=== PATIENT | male | born 1990 | race Caucasian/White ===

== ENCOUNTER 2017-01-28 10:12 | Emergency (ER) | payer SELFPAY ==
[~2017-01-28] VITALS: Ht 185.4 cm; Wt 99.8 kg
[2017-01-28 10:12] VITALS: BP 150/81
[2017-01-28] MEDS ORDERED: MIRTAZAPINE15 MG ORAL (10:13)
[2017-01-28] MEDS ORDERED: VENLAFAXINE HCL25 MG ORAL (10:13)
[2017-01-28] MEDS ORDERED: GABAPENTIN100 MG ORAL (10:13)
--- NOTE | 2017-01-28 10:51 | Emergency Room Report ---
History of Present Illness General Chief Complaint: Overdose Source: Patient, EMS Present Illness HPI Patient brought by EMS after they were summoned for patient not breathing. Alleged opiate overdose. Patient woke with narcan. They state he was extremely cyanotic and bradypneic. Patient now awake and denies SI. Denies CP, SOB, cough, NVD, headache. No glucose problems. States he was "getting high". Anxious as from out of town and "all of my things are in my car with the keys in the ignition." Allergies: Coded Allergies: No Known Allergies (Unverified , 01/28/17) Patient History Past Medical History: see triage record Social History: Reports: drug use - heroin Social History Narrative from out of [place] Reviewed Nursing Documentation: PMH: Agreed, PSxH: Agreed Nursing Documentation-PMH History Of Psychiatric Problem: Yes - Anxiety, depression Review of Systems All Other Systems: negative except mentioned in HPI Physical Exam Vital Signs Date Time Temp Pulse Resp B/P Pulse Ox O2 Delivery O2 Flow Rate FiO2 01/28/17 10:09 97.7 106 16 150/81 98 Room Air Sp02 EP Interpretation: reviewed, normal General Appearance: well appearing, no apparent distress, GCS 15 Head: normocephalic Eyes: bilateral eye PERRL, bilateral eye Scleral Injection ENT: moist mucus membranes Neck: supple Respiratory: chest non-tender, lungs clear, normal breath sounds Cardiovascular #1: regular rate, rhythm Cardiovascular #2: 2+ radial (R) Gastrointestinal: normal inspection, normal bowel sounds, non tender, no mass, non-distended Musculoskeletal: back normal, gait/station normal, normal range of motion Neurologic: alert, oriented x3, motor strength/tone normal, DTRs symmetric, sensory intact, cerebellar normal, normal gait, speech normal Psychiatric: no suicidal/homicidal ideation, depressed affect, anxious Skin: other - track cabezas Medical Decision Making Diagnostic Impression: Primary Impression: Drug overdose Qualified Codes: T50.901A - Poisoning by unspecified drugs, medicaments and biological substances, accidental (unintentional), initial encounter Additional Impression: AMA ER Course Patient post respiratory arrest post opiate use now awake with narcan. Ddx: narcotic overdose, polypharmacy abuse, rhabdomyolysis, anoxic brain damage, risk for non-cardiac pulmonary edema, risk for rebound obtundation amongst others. Emergent evaluation with EKG, CXR, labs. Treatment with IV hydration and cardiac monitoring. EKG and CXR normal. Refusing IV and labs. Told of risks - he is more concerned about his possessions. Patient got narcan at 9:59. Refusing IV and labs. Wants to leave. Patient told he could . Insisted on leaving walked out. 10:50. Got in car to drive. Called [employer]. EKG Diagnostic Results Rate: tachycardiac ST Segments: no acute changes Rhythm Strip Diag. Results EP Interpretation: yes Rhythm: no PVC's, no ectopy, other - ST Chest X-Ray Diagnostic Results EP Interpretation: Yes Findings: no consolidation, no effusion, no pneumothorax, no acute cardiopulmonary disease Number of Views: 1 Patient left prior to repeat VS taken. Status: improved Disposition: AGAINST MEDICAL ADVICE Condition: Improved Referrals: NOT CHOSEN CARIDAD/,REFERRING (PCP) Sebastian Hwang M.D. Jan 28, 2017 10:51
[2017-01-28 10:52] VITALS: BP 150/81
--- NOTE | 2017-01-28 11:07 | Diagnostic Imaging Report ---
Indication: Short of breath Technique: XRAY CHEST 1 V Comparison: None. Findings: The cardiomediastinal silhouette is normal. The lungs are clear. There is no evidence of pleural fluid. The bones are unremarkable. Impression: Normal chest.
--- NOTE | 2017-01-30 13:57 | Cardiology Report ---
APPROVED REPORT EKG Measurement Heart [id number] Sinus tachycardia Otherwise normal ECG
== END 2017-01-28 10:52 | disposition left against medical advice (07) ==
LOC: EDBD 10:12 → EMR 10:47
DX: T65.91XA Toxic effect of unspecified substance, accidental (unintentional), initial encounter (principal); F41.9 Anxiety disorder, unspecified; Z53.21 Procedure and treatment not carried out due to patient leaving prior to being seen by health care provider
CPT/HCPCS: 71010; 93005; 99283

== ENCOUNTER 2017-08-07 17:44 | Inpatient (IN) | payer BC ==
[~2017-08-07] VITALS: Ht 185.4 cm; Wt 93.0 kg
[2017-08-07] VITALS (16 sets, daily range): BP systolic 92–195; BP diastolic 46–124
[~2017-08-07 17:44] MED LIST: GABAPENTIN100 MG ORAL; MIRTAZAPINE15 MG ORAL; Naloxone 1mg/ml 2ml ONE; VENLAFAXINE HCL25 MG ORAL
[2017-08-07] MEDS ORDERED: Naloxone 2 MG in D5W 500ml 498 ML IV SCH (17:45)
[2017-08-07] MEDS ORDERED: Naloxone 1mg/ml 2ml IVP ONE ×2 (17:45→18:30)
--- NOTE | 2017-08-07 18:29 | Emergency Room Report ---
History of Present Illness General Chief Complaint: Overdose Source: EMS Present Illness HPI 27YOM BIBEMS for suspected fentanyl overdose Unknown how patient took it Unknown if took other drugs, ETOH Was given 6mg naloxone various routes with minimal improvement Patient not providing HPI No other family/friends present Allergies: Coded Allergies: No Known Allergies (Unverified , 01/28/17) Patient History Past Medical History: unable to obtain Past Surgical History: unable to obtain Pertinent Family History: unable to obtain Immunizations: UTD Reviewed Nursing Documentation: PMH: Agreed, PSxH: Agreed Nursing Documentation-PMH Past Medical History: Deferred History Of Psychiatric Problem: Yes - substance abuse Review of Systems All Other Systems: limited - AMS Physical Exam Vital Signs Date Time Temp Pulse Resp B/P (MAP) Pulse Ox O2 Delivery O2 Flow Rate FiO2 08/07/17 17:38 56 12 124/75 96 Non-Rebreather 100 Sp02 EP Interpretation: reviewed, normal General Appearance: severe distress, lethargic, other - Diaphoretic Head: normocephalic, atraumatic Eyes: bilateral eye PERRL, bilateral eye EOMI, bilateral eye other - Pupils dilated ENT: normal ENT inspection, normal pharynx, no angioedema Respiratory: normal inspection, no rhonchi, no respiratory distress, no retraction, no accessory muscle use, no wheezing, accessory muscle use Cardiovascular #1: regular rate, rhythm, no edema Gastrointestinal: normal inspection, normal bowel sounds, non tender, soft, no guarding, no hernia, other - Intermittent vomiting gastric contents Genitourinary: no CVA tenderness Musculoskeletal: normal inspection, back normal, normal range of motion, Jennifer' s Sign negative Neurologic: normal inspection, alert, responsive, other - 4 limb movement normal Procedures Critical Care Time Critical Care Time CC time 80 minutes Includes constant bedside monitoring after multiple naloxone doses without improvement Review of labs, d/w EMS, review of CXR Includes brief 20min Code Blue Intubation Intubation : Consent: Emergent Intubation Method: orotracheal Tube Size (cm): 7.5 Medications: Etomidate Breath Sounds after Intubation: equal Intubation Complications: no complications Post Intubation Xray: Yes Attempts: Other - 2 Patient Tolerated: Well Complications: None Progress Patient intubated under direct Glidescope intubation with tube seen passing into vocal cords at 23cm Bilateral breath sounds auscultated No sounds heard in stomach When connected to vent, RT reports "Vent not registering" I rechecked with Glidescope and tube was dislodged to 20cm Patient emergently reintubated under direct glidescope visulization with tube to 26cm Bilateral breath sounds auscultated Medical Decision Making Diagnostic Impression: Primary Impression: Fentanyl poisoning Qualified Codes: T40.4X4A - Poisoning by other synthetic narcotics, undetermined, initial encounter Additional Impressions: Narcotic-induced respiratory depression Rhabdomyolysis Qualified Codes: M62.82 - Rhabdomyolysis DANTE (acute kidney injury) Altered mental status Qualified Codes: R41.82 - Altered mental status, unspecified ER Course Unknown intent fentanyl OD Minimal response to EMS and ER given naloxone Vomiting repeatedly Suspected aspiration Intubated emergently for airway protection and respiratory arrest Labs: Elevated WBCs, likely acute stress response vs aspiration Mild DANTE Mild Rhabdo Endorsed to Dr Howard for ICU admit at 8pm EKG Diagnostic Results Rate: tachycardiac Rhythm: NSR ST Segments: no acute changes ASA given to the pt in ED: No Rhythm Strip Diag. Results EP Interpretation: yes Rate: 98 Rhythm: NSR, no PVC's Chest X-Ray Diagnostic Results Chest X-Ray Diagnostic Results : Chest X-Ray Ordered: Yes # of Views/Limited/Complete: 1 View Indication: Other - AMS EP Interpretation: Yes Interpretation: no consolidation, no effusion, no pneumothorax, no acute cardiopulmonary disease, other - Tube in place Last Vital Signs Date Time Temp Pulse Resp B/P (MAP) Pulse Ox O2 Delivery O2 Flow Rate FiO2 08/07/17 17:38 56 12 124/75 96 Non-Rebreather 100 Status: improved Disposition: ADMITTED INPATIENT Condition: Critical Scripts Amoxicillin/Potassium Clav 500-125 Tablet* (AUGMENTIN 500-125 TABLET*) 1 Each Tablet 1 TAB ORAL THREE TIMES A DAY, #9 TAB Prov: Frankie (Kevin)Chanelle NP 08/11/17 CONCEPCIÓN ONEILL M.D. Aug 07, 2017 18:28
[2017-08-07] MEDS ORDERED: Propofol 200mg/20ml IV ONE ×2 (19:00→20:30)
[2017-08-07] MEDS ORDERED: Zemuron 50mg/5ml Inj IV ONE (19:15)
[2017-08-07] MEDS ORDERED: Etomidate 40mg/20ml Inj IV ONE (19:15)
[2017-08-07 20:12] LABS: MEAN CORPUSCULAR HEMOGLOBIN 32.5 PG (27.0-31.0); MEAN CORPUSCULAR HGB CONC 33.6 G/DL (32.0-36.0); MEAN CORPUSCULAR VOLUME 97 FL (80-99); MEAN PLATELET VOLUME 6.6 FL (6.5-10.1); PLATELET COUNT 325 K/UL (150-450); RED BLOOD COUNT 4.41 M/UL (4.70-6.10); RED CELL DISTRIBUTION WIDTH 12.1 % (11.6-14.8)
[2017-08-07 20:17] LABS: TROPONIN I < 0.30 ng/mL (<=0.30)
[2017-08-07 20:18] LABS: ABG BASE EXCESS -8.4; ABG PCO2 78.7 mmHg (35.0-45.0)
[2017-08-07 20:19] LABS: ABG ALLEN TEST POSITIVE
[2017-08-07 20:20] LABS: ALANINE AMINOTRANSFERASE 34 U/L (3-41); ALBUMIN/GLOBULIN RATIO 2.3 (1.0-2.7); ANION GAP 16 (5-15); ASPARTATE AMINO TRANSFERASE 47 U/L (5-40); CALCIUM 8.4 mg/dL (8.6-10.2); CARBON DIOXIDE 21 mEQ/L (20-30); CHLORIDE 102 mEQ/L (98-107); CREATININE 1.3 mg/dL (0.7-1.2); GLOMERULAR FILTRATION RATE > 60 mL/min (>60); HEMOLYSIS 24; POTASSIUM 3.9 mEQ/L (3.4-4.9); SODIUM 139 mEQ/L (135-145); TOTAL PROTEIN 7.3 g/dL (6.6-8.7)
[2017-08-07 20:30] LABS: CKMB 4.2 ng/mL (< 6.7)
[2017-08-07] MEDS ORDERED: Midazolam 2mg/2ml Inj IVP ONE (20:30)
[2017-08-07 20:36] LABS: WHITE BLOOD COUNT 28.5 K/UL (4.8-10.8)
[2017-08-07 21:19] LABS: BAND NEUTROPHILS % (MANUAL) 6 % (0-8); EOSINOPHILS % (MANUAL) 1 % (0-3); LYMPHOCYTES % (MANUAL) 6 % (20-45); NEUTROPHILS % (MANUAL) 85 % (45-75); TOTAL CELLS COUNTED 100
[2017-08-07 21:20] LABS: ANISOCYTOSIS 1+; BASOPHILS % (MANUAL) 0 % (0-2); PLATELET ESTIMATE ADEQUATE; PLATELET MORPHOLOGY NORMAL
--- NOTE | 2017-08-07 21:40 | Consultation ---
History of Present Illness General Date patient seen: Aug 07, 2017 Chief Complaint: Overdose Reason for Consultation: H&P Present Illness HPI 27 year old male was brought by paramedics from a [facility] for [facility], he received some Narcan, with minimal improvement. He was intubated in ER and transferring to ICU, Allergies: Coded Allergies: No Known Allergies (Unverified , 01/28/17) Medication History Scheduled Gabapentin* (Gabapentin*), 100 MG ORAL THREE TIMES A DAY, (Reported) Mirtazapine* (Remeron*), 15 MG ORAL BEDTIME, (Reported) Venlafaxine Hcl* (Effexor*), 25 MG ORAL THREE TIMES A DAY, (Reported) Patient History Healthcare decision maker Resuscitation status Advanced Directive on File Past Medical/Surgical History Past Medical/Surgical History: (1) Addiction to drug Review of Systems All Other Systems: negative except mentioned in HPI Physical Exam General Appearance: WD/WN Lines, tubes and drains: peripheral, central line HEENT: normocephalic, atraumatic Neck: non-tender, normal alignment Respiratory/Chest: chest wall non-tender, lungs clear Breasts: no masses Cardiovascular/Chest: normal peripheral pulses, normal rate Abdomen: normal bowel sounds, no organomegaly Genitourinary/Rectal: normal genital exam, normal rectal exam Last 24 Hour Vital Signs Date Time Temp Pulse Resp B/P (MAP) Pulse Ox O2 Delivery O2 Flow Rate FiO2 08/07/17 21:29 35 08/07/17 21:14 25 08/07/17 20:33 139 27 50 08/07/17 19:45 50 08/07/17 19:00 129 27 100 08/07/17 19:00 27 08/07/17 19:00 21 08/07/17 18:57 105 24 92/62 98 Mechanical Ventilator 100 08/07/17 18:50 108 22 109/78 98 Mechanical Ventilator 100 08/07/17 18:40 108 27 115/81 98 Mechanical Ventilator 100 08/07/17 18:30 107 24 118/77 98 Mechanical Ventilator 100 08/07/17 18:22 32 08/07/17 18:20 107 24 195/124 98 Mechanical Ventilator 100 08/07/17 18:10 100 08/07/17 18:10 118 34 100 Mechanical Ventilator 100 08/07/17 18:00 41 24 116/71 Ambu-Bag 100 9/18/17 17:50 55 19 99 Nasal Cannula 3.0 08/07/17 17:45 99.0 66 19 124/75 97 Nasal Cannula 3.0 08/07/17 17:44 56 12 08/07/17 17:38 56 12 124/75 96 Non-Rebreather 100 Intake and Output 08/07/17 08/08/17 19:00 07:00 Intake Total 1000 ml Balance 1000 ml Intake Oral 0 ml IV Total 1000 ml Laboratory Tests Test 08/07/17 19:55 08/07/17 20:00 White Blood Count 28.5 K/UL (4.8-10.8) *H Red Blood Count 4.41 M/UL (4.70-6.10) L Hemoglobin 14.3 G/DL (14.2-18.0) Hematocrit 42.6 % (42.0-52.0) Mean Corpuscular Volume 97 FL (80-99) Mean Corpuscular Hemoglobin 32.5 PG (27.0-31.0) H Mean Corpuscular Hemoglobin Concent 33.6 G/DL (32.0-36.0) Red Cell Distribution Width 12.1 % (11.6-14.8) Platelet Count 325 K/UL (150-450) Mean Platelet Volume 6.6 FL (6.5-10.1) Neutrophils (%) (Auto) % (45.0-75.0) Lymphocytes (%) (Auto) % (20.0-45.0) Monocytes (%) (Auto) % (1.0-10.0) Eosinophils (%) (Auto) % (0.0-3.0) Basophils (%) (Auto) % (0.0-2.0) Differential Total Cells Counted 100 Neutrophils % (Manual) 85 % (45-75) H Lymphocytes % (Manual) 6 % (20-45) L Monocytes % (Manual) 2 % (1-10) Eosinophils % (Manual) 1 % (0-3) Basophils % (Manual) 0 % (0-2) Band Neutrophils 6 % (0-8) Platelet Estimate Adequate Platelet Morphology Normal Anisocytosis 1+ Sodium Level 139 mEQ/L (135-145) Potassium Level 3.9 mEQ/L (3.4-4.9) Chloride Level 102 mEQ/L (98-107) Carbon Dioxide Level 21 mEQ/L (20-30) Anion Gap 16 (5-15) H Blood Urea Nitrogen 17 mg/dL (7-23) Creatinine 1.3 mg/dL (0.7-1.2) H Estimat Glomerular Filtration Rate > 60 mL/min (>60) Glucose Level 211 mg/dL (74-106) H Calcium Level 8.4 mg/dL (8.6-10.2) L Total Bilirubin 0.2 mg/dL (0.0-1.2) Aspartate Amino Transf (AST/SGOT) 47 U/L (5-40) H Alanine Aminotransferase (ALT/SGPT) 34 U/L (3-41) Alkaline Phosphatase 82 U/L (40-129) Total Creatine Kinase 401 U/L (38-174) H Creatine Kinase MB 4.2 ng/mL (< 6.7) Creatine Kinase MB Relative Index 1.0 Troponin I < 0.30 ng/mL (<=0.30) Total Protein 7.3 g/dL (6.6-8.7) Albumin 5.1 g/dL (3.5-5.2) Globulin 2.2 g/dL Albumin/Globulin Ratio 2.3 (1.0-2.7) Triglycerides Level 102 mg/dL (< 150) Arterial Blood pH 7.087 (7.350-7.450) Arterial Blood Partial Pressure CO2 78.7 mmHg (35.0-45.0) *H Arterial Blood Partial Pressure O2 263.2 mmHg (75.0-100.0) H Arterial Blood HCO3 23.2 mmol/L (22.0-26.0) Arterial Blood Oxygen Saturation 99.1 % (92.0-98.0) H Arterial Blood Base Excess -8.4 Johnnie Test Positive Height (Feet): 6 Height (Inches): 2.00 Weight (Pounds): 240 Medications Current Medications Medications (Trade) Dose Ordered Sig/Deon Route PRN Reason Start Time Stop Time Status Last Admin Dose Admin Acetaminophen (Tylenol) 650 mg Q4H PRN ORAL T>100.5 08/07/17 21:45 09/06/17 21:44 Albuterol/ Ipratropium (DuoNeb 0.5-3(2.5)mg/3ml) 3 ml Q4H PRN HHN Shortness of Breath 9/18/17 21:45 08/12/17 21:44 Dextrose (Dextrose 50%) STAT PRN IV Hypoglycemia 08/07/17 21:45 09/06/17 21:44 Dextrose/Sodium Chloride 1,000 ml @ 75 mls/hr [id number] IV 08/07/17 22:00 09/06/17 21:59 Fentanyl Citrate 1000 mcg/Sodium Chloride 100 ml @ 0 mls/hr Q24H IV 08/07/17 20:30 08/14/17 20:29 08/07/17 21:14 Heparin Sodium (Porcine) (Heparin 5000 units/ml) 5,000 units EVERY 12 HOURS SUBQ 08/08/17 09:00 09/07/17 08:59 Lorazepam (Ativan 2mg/ml 1ml) 2 mg Q2H PRN IV agitation 08/07/17 21:45 08/14/17 21:44 Naloxone HCl 2 mg/ Dextrose 500 ml @ 0 mls/hr Q24H IV 08/07/17 17:45 09/06/17 17:44 Nitroglycerin (Ntg) 0.4 mg Q5M PRN SL Prn Chest Pain 08/07/17 21:45 09/06/17 21:44 Ondansetron HCl (Zofran) 4 mg Q6H PRN IVP Nausea & Vomiting 08/07/17 21:45 09/06/17 21:44 Propofol 100 ml @ 0 mls/hr Q24H IV 08/07/17 18:30 08/09/17 18:29 08/07/17 18:22 Assessment/Plan Problem List: (1) Respiratory arrest ICD Codes: R09.2 - Respiratory arrest SNOMED: 62186605 (2) Narcotic-induced respiratory depression ICD Codes: G93.89 - Other specified disorders of brain SNOMED: 88869161 (3) Addiction to drug ICD Codes: F19.20 - Other psychoactive substance dependence, uncomplicated SNOMED: 903862003, [id number] Respiratory: monitor respiratory rate, adjust FIO2, CXR Cardiac: continue to monitor HR/BP Infectious Disease: check cultures Gastrointestinal: hold feedings Endocrine: monitor blood sugar, continue sliding scale insulin Hematologic: monitor H/H, transfuse if hgb<8.5 Neurologic: PRN Ativan, keep patient comfortable Affect: PRN ativan Prophylaxis: Protonix Discussed with: nurses UMAIR MIKE Aug 07, 2017 21:40
[2017-08-07] MEDS ORDERED: Nitroglycerin Subl 0.4mg tab SL PRN (21:45)
[2017-08-07] MEDS ORDERED: DuoNeb 0.5-3(2.5)mg/3ml neb HHN PRN (21:45)
[2017-08-07] MEDS: LORazepam Inj 2mg/ml 1ml IV PRN (22:23)
[2017-08-07] MEDS: D5 1/2NS 1,000 ML IV SCH (22:50)
[2017-08-08] VITALS (30 sets, daily range): BP systolic 78–139; BP diastolic 49–98
[2017-08-08] MEDS: LORazepam Inj 2mg/ml 1ml IV PRN ×6 (00:20→12:07)
[2017-08-08] MEDS ORDERED: fentaNYL 100 mcg/2 mL IV ONE ×2 (02:21→02:26)
[2017-08-08 05:07] LABS: MEAN CORPUSCULAR HEMOGLOBIN 31.8 PG (27.0-31.0); MEAN CORPUSCULAR HGB CONC 33.4 G/DL (32.0-36.0); MEAN CORPUSCULAR VOLUME 95 FL (80-99); PLATELET COUNT 338 K/UL (150-450); RED BLOOD COUNT 4.47 M/UL (4.70-6.10); RED CELL DISTRIBUTION WIDTH 12.2 % (11.6-14.8)
[2017-08-08 05:16] LABS: PROTHROMBIN TIME 10.7 SEC (9.30-11.50)
[2017-08-08 05:25] LABS: WHITE BLOOD COUNT 27.2 K/UL (4.8-10.8)
[2017-08-08] MEDS: Midazolam for drip 50 MG in D5W 90 ML IV SCH (05:36)
[2017-08-08 05:37] LABS: BILIRUBIN,DIRECT 0.1 mg/dL (0.1-0.3); PHOSPHORUS 2.4 mg/dL (2.5-4.8); TOTAL PROTEIN 7.1 g/dL (6.6-8.7)
[2017-08-08 08:27] LABS: BAND NEUTROPHILS % (MANUAL) 5 % (0-8); BASOPHILS % (MANUAL) 0 % (0-2); EOSINOPHILS % (MANUAL) 1 % (0-3); LYMPHOCYTES % (MANUAL) 3 % (20-45); NEUTROPHILS % (MANUAL) 84 % (45-75); PLATELET ESTIMATE ADEQUATE; PLATELET MORPHOLOGY NORMAL; TOTAL CELLS COUNTED 100
[2017-08-08] MEDS: Heparin 5000 units/ml inj SUBQ SCH ×2 (08:39→20:57)
[2017-08-08] MEDS ORDERED: Haloperidol 5mg/ml Inj IVPB ONE (09:30)
[2017-08-08] MEDS: Haloperidol 5mg/ml Inj IM ONE ×2 (09:45→12:00)
--- NOTE | 2017-08-08 09:58 | Pulmonolgy Critical Care Note ---
Critical Care - Asmt/Plan Problems: (1) Respiratory arrest (2) Narcotic-induced respiratory depression (3) Addiction to drug (4) Leukocytosis Respiratory: monitor respiratory rate, adjust FIO2, CXR Cardiac: continue to monitor HR/BP Renal: F/U I&O, keep IV fluid Infectious Disease: check cultures Gastrointestinal: hold feedings Endocrine: monitor blood sugar Hematologic: monitor H/H, transfuse if hgb<8.5 Neurologic: PRN Ativan, PRN Morphine, keep patient comfortable Affect: PRN ativan, other - haldol for agitation Disposition: keep in ICU Discussed with: nurses, consultants Critical Care - Objective Last 24 Hour Vital Signs Date Time Temp Pulse Resp B/P (MAP) Pulse Ox O2 Delivery O2 Flow Rate FiO2 08/08/17 08:19 30 08/08/17 08:00 116 08/08/17 08:00 98.9 127 28 88/65 99 Mechanical Ventilator 50 08/08/17 08:00 50 08/08/17 07:30 105 24 92/54 99 Mechanical Ventilator 50 08/08/17 07:09 117 24 50 08/08/17 07:00 26 08/08/17 07:00 115 24 108/62 99 Mechanical Ventilator 50 08/08/17 06:30 118 24 100/67 99 Mechanical Ventilator 50 08/08/17 06:00 127 24 115/55 95 Mechanical Ventilator 50 08/08/17 06:00 24 08/08/17 06:00 24 08/08/17 05:36 27 08/08/17 05:36 29 08/08/17 05:10 143 35 50 08/08/17 05:00 141 24 135/59 95 Mechanical Ventilator 50 08/08/17 04:00 97.8 120 24 120/61 95 Mechanical Ventilator 50 08/08/17 04:00 50 08/08/17 04:00 124 08/08/17 04:00 28 08/08/17 03:30 117 24 110/61 95 Mechanical Ventilator 50 08/08/17 03:00 29 08/08/17 03:00 124 24 100/61 94 Mechanical Ventilator 50 08/08/17 02:48 145 34 50 08/08/17 02:30 130 31 139/85 95 Mechanical Ventilator 50 08/08/17 02:29 27 08/08/17 02:00 30 9/19/17 02:00 139 29 120/80 94 Mechanical Ventilator 50 9/19/17 01:30 140 29 127/80 94 Mechanical Ventilator 50 9/19/17 01:00 140 27 118/64 98 Mechanical Ventilator 50 9/19/17 01:00 27 9/19/17 00:31 27 9/19/17 00:30 126 24 114/74 97 Mechanical Ventilator 50 9/19/17 00:00 97.6 132 32 108/62 98 Mechanical Ventilator 50 9/18/17 23:30 121 26 101/72 100 Mechanical Ventilator 50 9/18/17 23:00 118 26 100/70 100 Mechanical Ventilator 50 9/18/17 22:50 26 9/18/17 22:33 132 25 50 9/18/17 22:27 50 9/18/17 22:22 115 9/18/17 22:22 96.8 115 30 98/46 98 Mechanical Ventilator 50 9/18/17 22:00 108/74 92 9/18/17 21:50 99.0 131 34 128/92 89 Mechanical Ventilator 3.0 50 9/18/17 21:49 34 9/18/17 21:47 131 36 128/92 89 Mechanical Ventilator 3.0 50 9/18/17 21:44 36 9/18/17 21:39 30 9/18/17 21:34 28 9/18/17 21:30 106 93 9/18/17 21:29 35 9/18/17 21:24 28 9/18/17 21:19 28 9/18/17 21:14 28 9/18/17 21:14 25 9/18/17 21:00 117 146/106 86 9/18/17 20:33 139 27 50 9/18/17 20:30 130 144/91 97 9/18/17 20:00 121 101/77 93 9/18/17 20:00 24 9/18/17 19:45 26 9/18/17 19:45 50 9/18/17 19:30 24 9/18/17 19:30 123 115/74 88 9/18/17 19:15 26 9/18/17 19:00 105 91 9/18/17 19:00 129 27 100 9/18/17 19:00 27 9/18/17 19:00 21 9/18/17 18:57 105 24 92/62 98 Mechanical Ventilator 100 9/18/17 18:50 108 22 109/78 98 Mechanical Ventilator 100 08/07/17 18:40 108 27 115/81 98 Mechanical Ventilator 100 08/07/17 18:30 107 24 118/77 98 Mechanical Ventilator 100 08/07/17 18:22 32 08/07/17 18:20 107 24 195/124 98 Mechanical Ventilator 100 08/07/17 18:10 100 08/07/17 18:10 118 34 100 Mechanical Ventilator 100 08/07/17 18:00 41 24 116/71 Ambu-Bag 100 08/07/17 17:50 55 19 99 Nasal Cannula 3.0 08/07/17 17:45 99.0 66 19 124/75 97 Nasal Cannula 3.0 08/07/17 17:44 56 12 08/07/17 17:38 56 12 124/75 96 Non-Rebreather 100 Status: sedated Condition: critical HEENT: atraumatic Neck: full ROM Lungs: chest wall tender Heart: HR/BP stable, HR/BP unstable, regular Abdomen: soft, active bowel sounds, feeding tube Extremities: no C/C/E, edema Decubiti: location Critical Care - Subjective ROS Limited/Unobtainable: Yes ICU Day: 2 Intubation Day: 2 Condition: critical EKG Rhythm: Sinus Rhythm FI02: 50 Vent Support Breath Rate: 24 Vent Support Mode: AC Vent Tidal Volume: 600 Sputum Amount: Moderate PEEP: 5.0 PIP: 23 I&O: Intake and Output 08/08/17 08/09/17 19:00 07:00 Output Total 140 ml Balance -140 ml Output Urine Total 140 ml CXR: CHARLETTE ET-Tube: 7.5 ET Position: 25 Labs: Laboratory Tests Test 08/07/17 19:55 08/07/17 20:00 08/08/17 04:05 White Blood Count 28.5 K/UL (4.8-10.8) *H 27.2 K/UL (4.8-10.8) *H Red Blood Count 4.41 M/UL (4.70-6.10) L 4.47 M/UL (4.70-6.10) L Hemoglobin 14.3 G/DL (14.2-18.0) 14.2 G/DL (14.2-18.0) Hematocrit 42.6 % (42.0-52.0) 42.4 % (42.0-52.0) Mean Corpuscular Volume 97 FL (80-99) 95 FL (80-99) Mean Corpuscular Hemoglobin 32.5 PG (27.0-31.0) H 31.8 PG (27.0-31.0) H Mean Corpuscular Hemoglobin Concent 33.6 G/DL (32.0-36.0) 33.4 G/DL (32.0-36.0) Red Cell Distribution Width 12.1 % (11.6-14.8) 12.2 % (11.6-14.8) Platelet Count 325 K/UL (150-450) 338 K/UL (150-450) Mean Platelet Volume 6.6 FL (6.5-10.1) 7.0 FL (6.5-10.1) Neutrophils (%) (Auto) % (45.0-75.0) % (45.0-75.0) Lymphocytes (%) (Auto) % (20.0-45.0) % (20.0-45.0) Monocytes (%) (Auto) % (1.0-10.0) % (1.0-10.0) Eosinophils (%) (Auto) % (0.0-3.0) % (0.0-3.0) Basophils (%) (Auto) % (0.0-2.0) % (0.0-2.0) Differential Total Cells Counted 100 100 Neutrophils % (Manual) 85 % (45-75) H 84 % (45-75) H Lymphocytes % (Manual) 6 % (20-45) L 3 % (20-45) L Monocytes % (Manual) 2 % (1-10) 7 % (1-10) Eosinophils % (Manual) 1 % (0-3) 1 % (0-3) Basophils % (Manual) 0 % (0-2) 0 % (0-2) Band Neutrophils 6 % (0-8) 5 % (0-8) Platelet Estimate Adequate Adequate Platelet Morphology Normal Normal Anisocytosis 1+ Sodium Level 139 mEQ/L (135-145) Potassium Level 3.9 mEQ/L (3.4-4.9) Chloride Level 102 mEQ/L (98-107) Carbon Dioxide Level 21 mEQ/L (20-30) Anion Gap 16 (5-15) H Blood Urea Nitrogen 17 mg/dL (7-23) Creatinine 1.3 mg/dL (0.7-1.2) H Estimat Glomerular Filtration Rate > 60 mL/min (>60) Glucose Level 211 mg/dL (74-106) H Calcium Level 8.4 mg/dL (8.6-10.2) L Total Bilirubin 0.2 mg/dL (0.0-1.2) 0.3 mg/dL (0.0-1.2) Aspartate Amino Transf (AST/SGOT) 47 U/L (5-40) H 53 U/L (5-40) H Alanine Aminotransferase (ALT/SGPT) 34 U/L (3-41) 31 U/L (3-41) Alkaline Phosphatase 82 U/L (40-129) 76 U/L (40-129) Total Creatine Kinase 401 U/L (38-174) H Creatine Kinase MB 4.2 ng/mL (< 6.7) Creatine Kinase MB Relative Index 1.0 Troponin I < 0.30 ng/mL (<=0.30) Total Protein 7.3 g/dL (6.6-8.7) 7.1 g/dL (6.6-8.7) Albumin 5.1 g/dL (3.5-5.2) 4.8 g/dL (3.5-5.2) Globulin 2.2 g/dL Albumin/Globulin Ratio 2.3 (1.0-2.7) Triglycerides Level 102 mg/dL (< 150) Arterial Blood pH 7.087 (7.350-7.450) Arterial Blood Partial Pressure CO2 78.7 mmHg (35.0-45.0) *H Arterial Blood Partial Pressure O2 263.2 mmHg (75.0-100.0) H Arterial Blood HCO3 23.2 mmol/L (22.0-26.0) Arterial Blood Oxygen Saturation 99.1 % (92.0-98.0) H Arterial Blood Base Excess -8.4 Johnnie Test Positive Red Blood Cell Morphology Normal Prothrombin Time 10.7 SEC (9.30-11.50) Prothromb Time International Ratio 1.0 (0.9-1.1) Activated Partial Thromboplast Time 29 SEC (23-33) Phosphorus Level 2.4 mg/dL (2.5-4.8) L Direct Bilirubin 0.1 mg/dL (0.1-0.3) Lactate Dehydrogenase 434 U/L (135-230) H UMAIR MIKE Aug 08, 2017 09:58
[2017-08-08] MEDS ORDERED: Haloperidol 5mg/ml Inj IVPB PRN (10:00)
--- NOTE | 2017-08-08 10:17 | Diagnostic Imaging Report ---
Indication: SOB, status post intubation Technique: One view of the chest Comparison: 01/28/2017 Findings: There is an endotracheal tube in place, tip projecting approximately 5 cm above the carmela, in good position. There is borderline interstitial congestion and possibly some retrocardiac consolidation. Pleural spaces are clear. The stomach is distended. Transcutaneous pacemaker paddles overlie the patient Impression: Satisfactory endotracheal intubation Mild interstitial congestion
[2017-08-08] MEDS ORDERED: Haloperidol Lactate 10 MG in D5W 55 ML IVPB ONE ×2 (10:30→12:00)
[2017-08-08] MEDS: D5 1/2NS 1,000 ML IV SCH (10:31)
[2017-08-08] MEDS ORDERED: Haloperidol Lactate 5 MG in D5W 55 ML IVPB PRN (12:00)
--- NOTE | 2017-08-08 14:30 | Consultation ---
Consult Note Consult Note asked to eval for renal failure Cr 1.3 in ICU not historian- examined- data reviewed Assessment/Plan - -Renal failure, likely dehydratrion (1) Respiratory arrest, now extubated (2) Narcotic-induced respiratory depression (3) Addiction to drug (4) Leukocytosis Plan: Change IV to Isotonic- Add IV Protonix- monitor renal parameters- Avoid Nephrotoxics Per orders SHRUTI MCCRAY Aug 08, 2017 14:30
[2017-08-08 14:49] LABS: ABG ALLEN TEST POSITIVE; ABG BASE EXCESS -2.2; ABG PCO2 30.4 mmHg (35.0-45.0)
[2017-08-08] MEDS: D5NS 1,000 ML IV SCH (15:00)
[2017-08-08] MEDS: Pantoprazole Inj IVP SCH ×2 (15:00→23:00)
[2017-08-08] MEDS ORDERED: Haloperidol Decanoate 50mg Inj IM PRN (16:15)
[2017-08-08] MEDS ORDERED: Haloperidol 5mg/ml Inj IM PRN (16:30)
[2017-08-08] MEDS ORDERED: Haloperidol Decanoate 50mg Inj IM ONE (17:00)
[2017-08-08 17:33] LABS: APPEARANCE,URINE CLEAR; KETONES,URINE 1+ (NEGATIVE); LEUKOCYTE ESTERASE ,URINE 1+ (NEGATIVE); NITRITE,URINE NEGATIVE (NEGATIVE); PH,URINE 5 (4.5-8.0); PROTEIN,URINE 2+ (NEGATIVE); UROBILINOGEN,URINE NORMAL MG/DL (0.0-1.0)
--- NOTE | 2017-08-08 17:34 | Wound Care Consultation ---
Wound Assessment Wound Assessment #1: Wound Number: 1 Wound Present on Admission: Yes New Wound: No Status Change of Wound: No Wound Location Body Site Modif: right Wound Location Body Site: arm Wound Type: traumatic injury Hugh Test: Does not Hugh Wound Thickness: Full Thickness Wound Length: 17.5 Wound Width: 5.5 Wound Depth: 0.2 Percent of Wound [place]/Red: 100 Wound Drainage Description: Serosanguineous Wound Drainage Amount: Moderate Wound Drainage Odor: None/Absent Tissue Surrounding Wound: Erythemic Wound General Appearance: Reddened, Draining Wound Assessment #2: Wound Number: 2 Wound Present on Admission: Yes New Wound: No Status Change of Wound: No Wound Location Body Site Modif: left, lateral Wound Location Body Site: leg Wound Type: traumatic injury Hugh Test: Does not Hugh Wound Thickness: Full Thickness Wound Length: 5.0 Wound Width: 1.5 Wound Depth: utd Percent of Wound [place]/Red: 50 Percent of Wound Bed Yellow/Wh: 50 - dry Wound Drainage Amount: None Wound Drainage Odor: None/Absent Tissue Surrounding Wound: Erythemic Wound General Appearance: Open to air Wound Comment #1 Left arm with traumatic injury. Open wound. #2 Right lower lateral leg traumatic injury with dry wound. Recommendation -Keep clean and dry -Local wound care per protocol -Optimize nutrition -Assess and f/u accordingly for any changes IRAIDA MALONE RN Aug 08, 2017 17:34
[2017-08-08 17:45] LABS: AMORPHOUS SEDIMENT,UR FEW /LPF; BACTERIA,URINE MODERATE /HPF
--- NOTE | 2017-08-08 18:01 | Cardiology Report ---
APPROVED REPORT EXAM: Two-dimensional and M-mode echocardiogram with Doppler and color Doppler. INDICATION Left ventricular function M-Mode DIMENSIONS IVSd0.8 (0.7-1.1cm)Left Atrium (MM)3.4 (1.6-4.0cm) LVDd5.4 (3.5-5.6cm)Aortic Root2.9 (2.0-3.7cm) PWd0.9 (0.7-1.1cm)Aortic Cusp Exc.2.0 (1.5-2.0cm) LVDs4.4 (2.5-4.0cm) PWs1.0 cm Technically limited and difficult study due to poor acoustical windows. Normal left ventricular chamber size, systolic function and wall motion. Left ventricular ejection fraction estimated to be 40%. Mid TO DISTAL posterior and inferiorAND SEPTUM AND MID ANTERIOR WALL hypokinesis. No evidence of left ventricular hypertrophy. No evidence of pericardial or pleural effusion. All other cardiac chamber sizes are within normal limits. Focal aortic valve sclerosis with adequate cusp excursion. Thickened mitral valve leaflets with normal excursion. Mild mitral annulus and aortic root calcification. Pulmonic valve is well visualized. Normal tricuspid valve structure. IVC is normal in size and collapsible with respiration. A color flow and spectral Doppler study was performed and revealed: No aortic regurgitation. No mitral regurgitation. Mitral diastolic velocities not obtainable due to A-FIB. No tricuspid regurgitation.
--- NOTE | 2017-08-08 23:41 | Consultation ---
Consult Note Consult Note ID DIC # [id number] ADDI ZAVALA M.D. Aug 08, 2017 23:41
[2017-08-08] MEDS: Piperacillin/Tazobactam 3.375 GM in D5W 110 ML IVPB SCH (23:45)
[2017-08-09] VITALS (14 sets, daily range): BP systolic 86–128; BP diastolic 41–71
[2017-08-09] MEDS: D5NS 1,000 ML IV SCH ×2 (01:00→04:30)
[2017-08-09] MEDS: Midazolam for drip 50 MG in D5W 90 ML IV SCH (04:10)
[2017-08-09] MEDS ORDERED: Zosyn 3.375gm inj ONE (05:22)
[2017-08-09] MEDS: Piperacillin/Tazobactam 3.375 GM in D5W 110 ML IVPB SCH ×3 (05:32→23:30)
[2017-08-09 06:00] LABS: BASOPHILS % (AUTO) 0.3 % (0.0-2.0); EOSINOPHILS % (AUTO) 0.6 % (0.0-3.0); LYMPHOCYTES % (AUTO) 9.9 % (20.0-45.0); MEAN CORPUSCULAR HEMOGLOBIN 32.2 PG (27.0-31.0); MEAN CORPUSCULAR VOLUME 95 FL (80-99); MEAN PLATELET VOLUME 6.5 FL (6.5-10.1); MONOCYTES % (AUTO) 6.1 % (1.0-10.0); NEUTROPHILS % (AUTO) 83.2 % (45.0-75.0); PLATELET COUNT 285 K/UL (150-450); RED BLOOD COUNT 4.47 M/UL (4.70-6.10); RED CELL DISTRIBUTION WIDTH 11.9 % (11.6-14.8); WHITE BLOOD COUNT 15.7 K/UL (4.8-10.8)
[2017-08-09 06:31] LABS: ALANINE AMINOTRANSFERASE 25 U/L (3-41); ALBUMIN/GLOBULIN RATIO 1.1 (1.0-2.7); ANION GAP 17 (5-15); ASPARTATE AMINO TRANSFERASE 41 U/L (5-40); CALCIUM 9.1 mg/dL (8.6-10.2); CARBON DIOXIDE 22 mEQ/L (20-30); CHLORIDE 102 mEQ/L (98-107); CREATININE 0.9 mg/dL (0.7-1.2); GLOMERULAR FILTRATION RATE > 60 mL/min (>60); HEMOLYSIS 3; PHOSPHORUS 2.3 mg/dL (2.5-4.8); POTASSIUM 3.8 mEQ/L (3.4-4.9); SODIUM 141 mEQ/L (135-145)
[2017-08-09 06:32] LABS: CHOLESTEROL/HDL RATIO 2.2 (3.3-4.4); CRP QUANT 18.7 mg/dL (< 0.5)
[2017-08-09 06:45] LABS: HEMOGLOBIN A1C 4.8 % (< 6.0)
[2017-08-09 08:02] LABS: ABG ALLEN TEST POSITIVE; ABG BASE EXCESS -2.7; ABG PCO2 35.2 mmHg (35.0-45.0)
--- NOTE | 2017-08-09 08:43 | General Progress Note ---
Assessment/Plan Status: stable - from renal stand Assessment/Plan - -Renal failure, likely dehydratrion (1) Respiratory arrest, now extubated (2) Narcotic-induced respiratory depression (3) Addiction to drug (4) Leukocytosis, improving Plan: Change IV to Isotonic- Add IV Protonix- monitor renal parameters- Avoid Nephrotoxics Per orders Subjective ROS Limited/Unobtainable: No Allergies: Coded Allergies: No Known Allergies (Unverified , 01/28/17) Objective Last 24 Hour Vital Signs Date Time Temp Pulse Resp B/P (MAP) Pulse Ox O2 Delivery O2 Flow Rate FiO2 08/09/17 08:00 98.6 103 23 107/58 100 Non-Rebreather 100 08/09/17 07:21 Non-Rebreather 15.0 100 08/09/17 07:20 100 Non-Rebreather 15.0 100 08/09/17 07:00 91 27 94/42 100 Non-Rebreather 100 08/09/17 06:00 104 28 93/41 99 Non-Rebreather 100 08/09/17 05:00 99 28 112/67 100 Non-Rebreather 100 08/09/17 04:00 112 08/09/17 04:00 98.6 112 23 96/52 100 Non-Rebreather 100 08/09/17 03:00 104 27 99/56 99 Non-Rebreather 100 08/09/17 02:00 106 24 100/64 99 Non-Rebreather 100 08/09/17 01:00 107 22 88/49 99 Non-Rebreather 100 08/09/17 00:00 98.8 106 22 86/46 99 Non-Rebreather 100 08/09/17 00:00 106 08/08/17 23:00 112 27 83/50 99 Non-Rebreather 100 08/08/17 22:00 117 24 88/52 100 Non-Rebreather 100 08/08/17 21:00 104 23 90/52 99 Non-Rebreather 100 08/08/17 20:00 110 08/08/17 20:00 110 29 99/57 99 Non-Rebreather 100 08/08/17 19:30 Non-Rebreather 15.0 100 08/08/17 19:30 99 Non-Rebreather 15.0 100 08/08/17 19:00 98.7 120 27 91/54 100 Non-Rebreather 100 08/08/17 18:00 118 32 93/51 99 Non-Rebreather 100 08/08/17 17:00 110 34 91/54 99 Non-Rebreather 100 08/08/17 16:00 129 08/08/17 16:00 121 24 85/50 99 Non-Rebreather 100 08/08/17 15:00 118 24 80/51 99 Non-Rebreather 100 08/08/17 14:00 117 24 98/58 99 Mechanical Ventilator 50 08/08/17 13:00 117 24 87/53 99 Mechanical Ventilator 50 08/08/17 12:11 90 Non-Rebreather 15.0 100 08/08/17 12:10 Non-Rebreather 15.0 100 08/08/17 12:00 112 08/08/17 12:00 118 24 78/49 99 Mechanical Ventilator 50 08/08/17 11:55 Non-Rebreather 15.0 100 08/08/17 11:23 146 44 50 08/08/17 11:00 139 24 104/57 99 Mechanical Ventilator 50 08/08/17 10:07 98.9 08/08/17 10:00 126 24 120/98 99 Mechanical Ventilator 50 08/08/17 09:29 120 26 50 08/08/17 09:00 98.9 107 24 88/58 99 Mechanical Ventilator 50 Intake and Output 08/09/17 08/10/17 19:00 07:00 Output Total 30 ml Balance -30 ml Output Urine Total 30 ml Laboratory Tests 08/08/17 09:45: Urine Opiates Screen Negative, Urine Barbiturates Screen PositiveH, Phencyclidine (PCP) Screen Negative, Urine Amphetamines Screen Negative, Urine Benzodiazepines Screen PositiveH, Urine Cocaine Screen Negative, Urine Marijuana (THC) Screen PositiveH 08/08/17 14:30: Arterial Blood pH 7.451H, Arterial Blood Partial Pressure CO2 30.4L, Arterial Blood Partial Pressure O2 66.7L, Arterial Blood HCO3 20.6L, Arterial Blood Oxygen Saturation 94.2, Arterial Blood Base Excess -2.2, Johnnie Test Positive 08/08/17 14:50: Urine Color Yellow, Urine Appearance Clear, Urine pH 5, Urine Specific [place] 1.025, Urine Protein 2+H, Urine Glucose (UA) Negative, Urine Ketones 1+H, Urine Occult Blood 5+H, Urine Nitrite Negative, Urine Bilirubin Negative, Urine Urobilinogen Normal, Urine Leukocyte Esterase 1+H, Urine RBC 10-15H, Urine WBC 2 -4, Urine Squamous Epithelial Cells None, Urine Amorphous Sediment FewH, Urine Bacteria ModerateH 08/09/17 04:15: White Blood Count 15.7H, Red Blood Count 4.47L, Hemoglobin 14.4, Hematocrit 42.2 , Mean Corpuscular Volume 95, Mean Corpuscular Hemoglobin 32.2H, Mean Corpuscular Hemoglobin Concent 34.0, Red Cell Distribution Width 11.9, Platelet Count 285, Mean Platelet Volume 6.5, Neutrophils (%) (Auto) 83.2H, Lymphocytes ( %) (Auto) 9.9L, Monocytes (%) (Auto) 6.1, Eosinophils (%) (Auto) 0.6, Basophils (%) (Auto) 0.3, Sodium Level 141, Potassium Level 3.8, Chloride Level 102, Carbon Dioxide Level 22, Anion Gap 17H, Blood Urea Nitrogen 23, Creatinine 0.9, Estimat Glomerular Filtration Rate > 60, Glucose Level 79#, Hemoglobin A1c 4.8, Uric Acid 4.0, Calcium Level 9.1, Phosphorus Level 2.3L, Magnesium Level 2.0, Total Bilirubin 0.4, Aspartate Amino Transf (AST/SGOT) 41H, Alanine Aminotransferase (ALT/SGPT) 25, Alkaline Phosphatase 81, C-Reactive Protein, Quantitative 18.7H, Pro-B-Type Natriuretic Peptide 5339H, Total Protein 7.0, Albumin 3.7, Globulin 3.3, Albumin/Globulin Ratio 1.1, Triglycerides Level 75, Cholesterol Level 141, LDL Cholesterol 63, HDL Cholesterol 63H, Cholesterol/HDL Ratio 2.2L 08/09/17 07:45: Arterial Blood pH 7.401, Arterial Blood Partial Pressure CO2 35.2, Arterial Blood Partial Pressure O2 227.5H, Arterial Blood HCO3 21.4L, Arterial Blood Oxygen Saturation 99.4H, Arterial Blood Base Excess -2.7, Johnnie Test Positive Height (Feet): 6 Height (Inches): 1.00 Weight (Pounds): 205 General Appearance: no apparent distress Cardiovascular: tachycardia Respiratory/Chest: decreased breath sounds Abdomen: soft SHRUTI MCCRAY Aug 09, 2017 08:43
[2017-08-09] MEDS ORDERED: Potassium Phosphate 20 MM in NS 275 ML IV ONE (09:00)
[2017-08-09] MEDS: Pantoprazole Inj IVP SCH (09:11)
[2017-08-09] MEDS: Heparin 5000 units/ml inj SUBQ SCH (09:20)
[2017-08-09] MEDS ORDERED: LORazepam Inj 2mg/ml 1ml IV PRN ×3 (09:45→14:00)
--- NOTE | 2017-08-09 09:46 | Pulmonolgy Critical Care Note ---
Critical Care - Asmt/Plan Problems: (1) Respiratory arrest (2) Narcotic-induced respiratory depression (3) Addiction to drug (4) Leukocytosis Respiratory: monitor respiratory rate, adjust FIO2 Cardiac: continue to monitor HR/BP Renal: F/U I&O, decrease IV fluid Infectious Disease: check cultures, continue antibiotics Gastrointestinal: start feedings Endocrine: continue sliding scale insulin Hematologic: monitor H/H Neurologic: PRN Ativan, keep patient comfortable Affect: PRN ativan Prophylaxis: Protonix Notes Reviewed: rockboard lather, cardio, renal Discussed with: nurses, consultants, director case managementmanager of compensation - Objective Last 24 Hour Vital Signs Date Time Temp Pulse Resp B/P (MAP) Pulse Ox O2 Delivery O2 Flow Rate FiO2 08/09/17 09:31 100 Venturi Mask 15.0 55 08/09/17 08:00 98.6 103 23 107/58 100 Non-Rebreather 100 08/09/17 07:21 Non-Rebreather 15.0 100 08/09/17 07:20 100 Non-Rebreather 15.0 100 08/09/17 07:00 91 27 94/42 100 Non-Rebreather 100 08/09/17 06:00 104 28 93/41 99 Non-Rebreather 100 08/09/17 05:00 99 28 112/67 100 Non-Rebreather 100 08/09/17 04:00 112 08/09/17 04:00 98.6 112 23 96/52 100 Non-Rebreather 100 08/09/17 03:00 104 27 99/56 99 Non-Rebreather 100 08/09/17 02:00 106 24 100/64 99 Non-Rebreather 100 08/09/17 01:00 107 22 88/49 99 Non-Rebreather 100 08/09/17 00:00 98.8 106 22 86/46 99 Non-Rebreather 100 08/09/17 00:00 106 08/08/17 23:00 112 27 83/50 99 Non-Rebreather 100 08/08/17 22:00 117 24 88/52 100 Non-Rebreather 100 08/08/17 21:00 104 23 90/52 99 Non-Rebreather 100 08/08/17 20:00 110 08/08/17 20:00 110 29 99/57 99 Non-Rebreather 100 08/08/17 19:30 Non-Rebreather 15.0 100 08/08/17 19:30 99 Non-Rebreather 15.0 100 08/08/17 19:00 98.7 120 27 91/54 100 Non-Rebreather 100 08/08/17 18:00 118 32 93/51 99 Non-Rebreather 100 08/08/17 17:00 110 34 91/54 99 Non-Rebreather 100 08/08/17 16:00 129 08/08/17 16:00 121 24 85/50 99 Non-Rebreather 100 08/08/17 15:00 118 24 80/51 99 Non-Rebreather 100 08/08/17 14:00 117 24 98/58 99 Mechanical Ventilator 50 08/08/17 13:00 117 24 87/53 99 Mechanical Ventilator 50 08/08/17 12:11 90 Non-Rebreather 15.0 100 08/08/17 12:10 Non-Rebreather 15.0 100 08/08/17 12:00 112 08/08/17 12:00 118 24 78/49 99 Mechanical Ventilator 50 08/08/17 11:55 Non-Rebreather 15.0 100 08/08/17 11:23 146 44 50 08/08/17 11:00 139 24 104/57 99 Mechanical Ventilator 50 08/08/17 10:07 98.9 08/08/17 10:00 126 24 120/98 99 Mechanical Ventilator 50 Status: awake Condition: critical HEENT: atraumatic, normocephalic Lungs: rales Heart: HR/BP stable, HR/BP unstable Abdomen: soft, non-tender, feeding tube Extremities: no C/C/E Decubiti: location Micro: Microbiology Date/Time Source Procedure Growth Status 08/07/17 19:45 Nasal Nares MRSA Culture - Final NO METHICILLIN RESISTANT STAPH AUREUS... Complete 08/08/17 14:50 Urine,Clean Catch Urine Culture - Preliminary NO GROWTH Resulted 08/07/17 19:45 Rectum VRE Culture - Final NO VANCOMYCIN RESISTANT ENTEROCOCCUS ... Complete Critical Care - Subjective ROS Limited/Unobtainable: Yes ICU Day: 3 Interval Events: more awake, tolerating extubation, EKG Rhythm: Sinus Rhythm FI02: 55 Vent Support Breath Rate: 24 Vent Support Mode: AC Vent Tidal Volume: 600 Sputum Amount: Small PEEP: 5.0 PIP: 55 Fluids: d5 1/2 NS 100 cc.hour I&O: Intake and Output 08/09/17 08/10/17 19:00 07:00 Output Total 30 ml Balance -30 ml Output Urine Total 30 ml CXR: diffuse infiltrate ET-Tube: 7.5 ET Position: 25 Labs: Laboratory Tests Test 08/08/17 14:30 08/08/17 14:50 08/09/17 04:15 08/09/17 07:45 Arterial Blood pH 7.451 (7.350-7.450) 7.401 (7.350-7.450) Arterial Blood Partial Pressure CO2 30.4 mmHg (35.0-45.0) L 35.2 mmHg (35.0-45.0) Arterial Blood Partial Pressure O2 66.7 mmHg (75.0-100.0) L 227.5 mmHg (75.0-100.0) H Arterial Blood HCO3 20.6 mmol/L (22.0-26.0) L 21.4 mmol/L (22.0-26.0) L Arterial Blood Oxygen Saturation 94.2 % (92.0-98.0) 99.4 % (92.0-98.0) H Arterial Blood Base Excess -2.2 -2.7 Johnnie Test Positive Positive Urine Color Yellow Urine Appearance Clear Urine pH 5 (4.5-8.0) Urine Specific [place] 1.025 (1.005-1.035) Urine Protein 2+ (NEGATIVE) H Urine Glucose (UA) Negative (NEGATIVE) Urine Ketones 1+ (NEGATIVE) H Urine Occult Blood 5+ (NEGATIVE) H Urine Nitrite Negative (NEGATIVE) Urine Bilirubin Negative (NEGATIVE) Urine Urobilinogen Normal MG/DL (0.0-1.0) Urine Leukocyte Esterase 1+ (NEGATIVE) H Urine RBC 10-15 /HPF (0 - 0) H Urine WBC 2-4 /HPF (0 - 0) Urine Squamous Epithelial Cells None /LPF (NONE/OCC) Urine Amorphous Sediment Few /LPF (NONE) H Urine Bacteria Moderate /HPF (NONE) H White Blood Count 15.7 K/UL (4.8-10.8) H Red Blood Count 4.47 M/UL (4.70-6.10) L Hemoglobin 14.4 G/DL (14.2-18.0) Hematocrit 42.2 % (42.0-52.0) Mean Corpuscular Volume 95 FL (80-99) Mean Corpuscular Hemoglobin 32.2 PG (27.0-31.0) H Mean Corpuscular Hemoglobin Concent 34.0 G/DL (32.0-36.0) Red Cell Distribution Width 11.9 % (11.6-14.8) Platelet Count 285 K/UL (150-450) Mean Platelet Volume 6.5 FL (6.5-10.1) Neutrophils (%) (Auto) 83.2 % (45.0-75.0) H Lymphocytes (%) (Auto) 9.9 % (20.0-45.0) L Monocytes (%) (Auto) 6.1 % (1.0-10.0) Eosinophils (%) (Auto) 0.6 % (0.0-3.0) Basophils (%) (Auto) 0.3 % (0.0-2.0) Sodium Level 141 mEQ/L (135-145) Potassium Level 3.8 mEQ/L (3.4-4.9) Chloride Level 102 mEQ/L (98-107) Carbon Dioxide Level 22 mEQ/L (20-30) Anion Gap 17 (5-15) H Blood Urea Nitrogen 23 mg/dL (7-23) Creatinine 0.9 mg/dL (0.7-1.2) Estimat Glomerular Filtration Rate > 60 mL/min (>60) Glucose Level 79 mg/dL (74-106) # Hemoglobin A1c 4.8 % (< 6.0) Uric Acid 4.0 mg/dL (3.0-7.5) Calcium Level 9.1 mg/dL (8.6-10.2) Phosphorus Level 2.3 mg/dL (2.5-4.8) L Magnesium Level 2.0 mg/dL (1.7-2.5) Total Bilirubin 0.4 mg/dL (0.0-1.2) Aspartate Amino Transf (AST/SGOT) 41 U/L (5-40) H Alanine Aminotransferase (ALT/SGPT) 25 U/L (3-41) Alkaline Phosphatase 81 U/L (40-129) C-Reactive Protein, Quantitative 18.7 mg/dL (< 0.5) H Pro-B-Type Natriuretic Peptide 5339 pg/mL (0-125) H Total Protein 7.0 g/dL (6.6-8.7) Albumin 3.7 g/dL (3.5-5.2) Globulin 3.3 g/dL Albumin/Globulin Ratio 1.1 (1.0-2.7) Triglycerides Level 75 mg/dL (< 150) Cholesterol Level 141 mg/dL (< 200) LDL Cholesterol 63 mg/dL (60-99) HDL Cholesterol 63 mg/dL (> 60) H Cholesterol/HDL Ratio 2.2 (3.3-4.4) UMAIR AYALA Aug 09, 2017 09:46
--- NOTE | 2017-08-09 10:10 | Diagnostic Imaging Report ---
Indication: DYSPNEA Technique: One view of the chest Comparison: 08/07/2017 Findings: Nodular/interstitial opacities are now seen throughout the right lung. The left lung and pleural space remain clear. Heart size is normal. Previously demonstrated endotracheal tube is no longer present. Previously demonstrated gastric distention is no longer evident. Impression: Unilateral nodular/interstitial opacities throughout the right lung, new or increased from the previous study. Findings are nonspecific, but could represent an infectious or inflammatory process. Interim clearing of the left lung. Interim extubation
--- NOTE | 2017-08-09 10:32 | Consultation ---
History of Present Illness General Chief Complaint: Overdose Reason for Consultation: H&P Present Illness HPI 27 yo male with hx of heroine IV use admitted from his sober living after he overdosed on opioids. "I didn't overdose, I was very happy, I didn't have any drugs to od on. I don't know how I ended up in ICU." the pt didn't endorse depressive, manic or psychotic sxs. the pt is not endorsing SI and stated that "it was definitely a suicide attempt. there was no fentanyl patch." the pt denied getting a script for opioids. The later he stated he may have snorted "Fentanyl powder..like you could snort it or whatever." the pt was lucid and engaged. no agitation. Allergies: Coded Allergies: No Known Allergies (Unverified , 01/28/17) Medication History Scheduled Gabapentin* (Gabapentin*), 100 MG ORAL THREE TIMES A DAY, (Reported) Mirtazapine* (Remeron*), 15 MG ORAL BEDTIME, (Reported) Venlafaxine Hcl* (Effexor*), 25 MG ORAL THREE TIMES A DAY, (Reported) Patient History History Provided By: Patient, Medical Record, PMD Healthcare decision maker none Resuscitation status Full Code Advanced Directive on File No Past Medical/Surgical History Past Medical/Surgical History: (1) Fentanyl poisoning (2) Narcotic-induced respiratory depression (3) Drug overdose (4) Addiction to drug (5) Respiratory arrest (6) Leukocytosis Review of Systems Psychiatric: Reports: no symptoms, prior hx All Other Systems: negative except mentioned in HPI Physical Exam General Appearance: no apparent distress, alert, thin Neurologic: alert, oriented x 3, responsive, normal mood/affect Last 24 Hour Vital Signs Date Time Temp Pulse Resp B/P (MAP) Pulse Ox O2 Delivery O2 Flow Rate FiO2 08/09/17 10:00 109 25 93/58 100 Non-Rebreather 100 08/09/17 09:44 92 20 Venturi Mask 14.0 55 08/09/17 09:31 100 Venturi Mask 15.0 55 08/09/17 09:00 106 27 89/48 100 Non-Rebreather 100 08/09/17 08:00 98.6 103 23 107/58 100 Non-Rebreather 100 08/09/17 08:00 106 08/09/17 07:21 Non-Rebreather 15.0 100 08/09/17 07:20 100 Non-Rebreather 15.0 100 08/09/17 07:00 91 27 94/42 100 Non-Rebreather 100 08/09/17 06:00 104 28 93/41 99 Non-Rebreather 100 08/09/17 05:00 99 28 112/67 100 Non-Rebreather 100 08/09/17 04:00 112 08/09/17 04:00 98.6 112 23 96/52 100 Non-Rebreather 100 08/09/17 03:00 104 27 99/56 99 Non-Rebreather 100 08/09/17 02:00 106 24 100/64 99 Non-Rebreather 100 08/09/17 01:00 107 22 88/49 99 Non-Rebreather 100 08/09/17 00:00 98.8 106 22 86/46 99 Non-Rebreather 100 08/09/17 00:00 106 08/08/17 23:00 112 27 83/50 99 Non-Rebreather 100 08/08/17 22:00 117 24 88/52 100 Non-Rebreather 100 08/08/17 21:00 104 23 90/52 99 Non-Rebreather 100 08/08/17 20:00 110 08/08/17 20:00 110 29 99/57 99 Non-Rebreather 100 08/08/17 19:30 Non-Rebreather 15.0 100 08/08/17 19:30 99 Non-Rebreather 15.0 100 08/08/17 19:00 98.7 120 27 91/54 100 Non-Rebreather 100 08/08/17 18:00 118 32 93/51 99 Non-Rebreather 100 08/08/17 17:00 110 34 91/54 99 Non-Rebreather 100 08/08/17 16:00 129 08/08/17 16:00 121 24 85/50 99 Non-Rebreather 100 08/08/17 15:00 118 24 80/51 99 Non-Rebreather 100 08/08/17 14:00 117 24 98/58 99 Mechanical Ventilator 50 08/08/17 13:00 117 24 87/53 99 Mechanical Ventilator 50 08/08/17 12:11 90 Non-Rebreather 15.0 100 08/08/17 12:10 Non-Rebreather 15.0 100 08/08/17 12:00 112 08/08/17 12:00 118 24 78/49 99 Mechanical Ventilator 50 08/08/17 11:55 Non-Rebreather 15.0 100 08/08/17 11:23 146 44 50 08/08/17 11:00 139 24 104/57 99 Mechanical Ventilator 50 Intake and Output 08/09/17 08/10/17 19:00 07:00 Intake Total 100 ml Output Total 80 ml Balance 20 ml Intake Oral 100 ml Output Urine Total 80 ml Laboratory Tests Test 08/08/17 14:30 08/08/17 14:50 08/09/17 04:15 08/09/17 07:45 Arterial Blood pH 7.451 (7.350-7.450) 7.401 (7.350-7.450) Arterial Blood Partial Pressure CO2 30.4 mmHg (35.0-45.0) L 35.2 mmHg (35.0-45.0) Arterial Blood Partial Pressure O2 66.7 mmHg (75.0-100.0) L 227.5 mmHg (75.0-100.0) H Arterial Blood HCO3 20.6 mmol/L (22.0-26.0) L 21.4 mmol/L (22.0-26.0) L Arterial Blood Oxygen Saturation 94.2 % (92.0-98.0) 99.4 % (92.0-98.0) H Arterial Blood Base Excess -2.2 -2.7 Johnnie Test Positive Positive Urine Color Yellow Urine Appearance Clear Urine pH 5 (4.5-8.0) Urine Specific [place] 1.025 (1.005-1.035) Urine Protein 2+ (NEGATIVE) H Urine Glucose (UA) Negative (NEGATIVE) Urine Ketones 1+ (NEGATIVE) H Urine Occult Blood 5+ (NEGATIVE) H Urine Nitrite Negative (NEGATIVE) Urine Bilirubin Negative (NEGATIVE) Urine Urobilinogen Normal MG/DL (0.0-1.0) Urine Leukocyte Esterase 1+ (NEGATIVE) H Urine RBC 10-15 /HPF (0 - 0) H Urine WBC 2-4 /HPF (0 - 0) Urine Squamous Epithelial Cells None /LPF (NONE/OCC) Urine Amorphous Sediment Few /LPF (NONE) H Urine Bacteria Moderate /HPF (NONE) H White Blood Count 15.7 K/UL (4.8-10.8) H Red Blood Count 4.47 M/UL (4.70-6.10) L Hemoglobin 14.4 G/DL (14.2-18.0) Hematocrit 42.2 % (42.0-52.0) Mean Corpuscular Volume 95 FL (80-99) Mean Corpuscular Hemoglobin 32.2 PG (27.0-31.0) H Mean Corpuscular Hemoglobin Concent 34.0 G/DL (32.0-36.0) Red Cell Distribution Width 11.9 % (11.6-14.8) Platelet Count 285 K/UL (150-450) Mean Platelet Volume 6.5 FL (6.5-10.1) Neutrophils (%) (Auto) 83.2 % (45.0-75.0) H Lymphocytes (%) (Auto) 9.9 % (20.0-45.0) L Monocytes (%) (Auto) 6.1 % (1.0-10.0) Eosinophils (%) (Auto) 0.6 % (0.0-3.0) Basophils (%) (Auto) 0.3 % (0.0-2.0) Sodium Level 141 mEQ/L (135-145) Potassium Level 3.8 mEQ/L (3.4-4.9) Chloride Level 102 mEQ/L (98-107) Carbon Dioxide Level 22 mEQ/L (20-30) Anion Gap 17 (5-15) H Blood Urea Nitrogen 23 mg/dL (7-23) Creatinine 0.9 mg/dL (0.7-1.2) Estimat Glomerular Filtration Rate > 60 mL/min (>60) Glucose Level 79 mg/dL (74-106) # Hemoglobin A1c 4.8 % (< 6.0) Uric Acid 4.0 mg/dL (3.0-7.5) Calcium Level 9.1 mg/dL (8.6-10.2) Phosphorus Level 2.3 mg/dL (2.5-4.8) L Magnesium Level 2.0 mg/dL (1.7-2.5) Total Bilirubin 0.4 mg/dL (0.0-1.2) Aspartate Amino Transf (AST/SGOT) 41 U/L (5-40) H Alanine Aminotransferase (ALT/SGPT) 25 U/L (3-41) Alkaline Phosphatase 81 U/L (40-129) C-Reactive Protein, Quantitative 18.7 mg/dL (< 0.5) H Pro-B-Type Natriuretic Peptide 5339 pg/mL (0-125) H Total Protein 7.0 g/dL (6.6-8.7) Albumin 3.7 g/dL (3.5-5.2) Globulin 3.3 g/dL Albumin/Globulin Ratio 1.1 (1.0-2.7) Triglycerides Level 75 mg/dL (< 150) Cholesterol Level 141 mg/dL (< 200) LDL Cholesterol 63 mg/dL (60-99) HDL Cholesterol 63 mg/dL (> 60) H Cholesterol/HDL Ratio 2.2 (3.3-4.4) L Microbiology Date/Time Source Procedure Growth Status 08/08/17 14:50 Urine,Clean Catch Urine Culture - Preliminary NO GROWTH Resulted Height (Feet): 6 Height (Inches): 1.00 Weight (Pounds): 205 Medications Current Medications Medications (Trade) Dose Ordered Sig/Deon Route PRN Reason Start Time Stop Time Status Last Admin Dose Admin Acetaminophen (Tylenol) 650 mg Q4H PRN ORAL T>100.5 08/07/17 21:45 09/06/17 21:44 Albuterol/ Ipratropium (DuoNeb 0.5-3(2.5)mg/3ml) 3 ml Q4H PRN HHN Shortness of Breath 08/07/17 21:45 08/12/17 21:44 Dextrose (Dextrose 50%) STAT PRN IV Hypoglycemia 08/07/17 21:45 09/06/17 21:44 Haloperidol Lactate (Haldol) 5 mg Q1H PRN IM AGITATION 08/08/17 16:30 09/07/17 16:29 08/08/17 17:29 Heparin Sodium (Porcine) (Heparin 5000 units/ml) 5,000 units EVERY 12 HOURS SUBQ 08/08/17 09:00 09/07/17 08:59 08/09/17 09:20 Lorazepam (Ativan 2mg/ml 1ml) 1 mg Q2H PRN IV agitation 08/09/17 09:45 08/16/17 09:44 UNV Midazolam HCl 50 mg/Dextrose 100 ml @ 0 mls/hr Q24H IV 08/08/17 04:00 09/07/17 03:59 08/08/17 05:36 Nitroglycerin (Ntg) 0.4 mg Q5M PRN SL Prn Chest Pain 08/07/17 21:45 09/06/17 21:44 Ondansetron HCl (Zofran) 4 mg Q6H PRN IVP Nausea & Vomiting 08/07/17 21:45 09/06/17 21:44 Pantoprazole (Protonix) 40 mg EVERY 12 HOURS IVP 08/08/17 15:00 09/07/17 14:59 08/09/17 09:11 Piperacillin Sod/ Tazobactam Sod 3.375 gm/Dextrose 110 ml @ 27.5 mls/hr EVERY 8 HOURS IVPB 08/08/17 23:45 08/13/17 23:44 08/09/17 05:32 Potassium Phosphate 20 mm/ Sodium Chloride 281.6667 ml @ 46.944 m... ONCE ONCE IV 08/09/17 09:00 08/09/17 14:59 08/09/17 09:11 Assessment/Plan Status: stable, progressing Assessment/Plan Opioid dependance, Opioid OD the pt does not meet the criteria for 5150 or hold rec inpatient drug rehab the pt needs higher level of care not an IOP the pt wants to leave and understanding the risks, he stated that he would cooperate with Dr. Howard the pt wants to go back to IOP effexor 150mg the pt was on it before remeron 15mg qhs pt was on it before Sally Miramontes M.D. Aug 09, 2017 10:32
--- NOTE | 2017-08-09 11:01 | Consultation ---
DATE OF CONSULTATION: INFECTIOUS DISEASES CONSULTATION CONSULTING PHYSICIAN: Frank Ackerman M.D. REQUESTING PHYSICIAN: Colette Howard M.D. Reason For Consultation: Evaluation of the patient for possible aspiration pneumonia and antibiotic management. History Of Present Illness: The patient is a 27-year-old male, who was brought from a sober living to this medical center by paramedics due to the altered level of consciousness. The patient received Narcan with minimal improvement. The patient had to be resuscitated and was intubated, was transferred to this medical center. During hospitalization in the ICU, the patient self extubated himself. The patient is relatively confused. An Infectious Diseases consultation has been requested for further evaluation of the patient for possible need for antibiotic treatment. PAST MEDICAL HISTORY: Depression. MEDICATIONS: Currently off of antibiotics. ALLERGIES: No known drug allergies. SOCIAL HISTORY: The patient has a history of drug abuse. FAMILY HISTORY: Unavailable. REVIEW OF SYSTEMS: The patient is confused. PHYSICAL EXAMINATION: Vital Signs: Temperature 96.8 degrees, pulse 86, respiratory rate 18, and blood pressure 91/54. HEENT: No pale conjunctivae. No icterus. NECK: No lymphadenopathy. CHEST: Coarse breathing sounds. HEART: S1 and S2. ABDOMEN: Soft. EXTREMITIES: No cyanosis at this time. GENITOURINARY: Unremarkable. NEUROLOGIC: Confused. Laboratory and diagnostic Data: WBC 27, hemoglobin 14, and platelets 238,000. UA, 2 to 4 white blood cells. BUN 17 and creatinine 1.3. ALT and AST unremarkable. Chest x-ray, mild interstitial congestion. Assessment: The patient is a 27-year-old male with multiple medical problems who was admitted to this medical center for altered level of consciousness. The patient had to be intubated due to respiratory distress. The patient has: 1. Possible aspiration pneumonia. 2. Leukocytosis due to aspiration versus acute distress. 3. Rule out bacteremia. 4. Possible history of drug abuse, details are not clear at this time. PLAN: 1. We will start the patient on IV Zosyn. 2. Monitor CBC. 3. Monitor BMP. 4. We will send sputum and blood culture. 5. Monitor chest x-ray. 6. Based on the patient's clinical course and labs, we will do further recommendation. Thank you, Dr. Howard, for allowing me to participate in the care of this patient. I will follow the patient with you during this hospitalization. Frank Ackerman M.D. DR: KAREN JOB#: [id number] CC:
[2017-08-09] MEDS ORDERED: Venlafaxine XR 150mg cap ORAL SCH (12:00)
[2017-08-09] MEDS ORDERED: Nitroglycerin Subl 0.4mg tab SL PRN (13:45)
[2017-08-09] MEDS ORDERED: DuoNeb 0.5-3(2.5)mg/3ml neb HHN PRN (14:00)
[2017-08-09] MEDS ORDERED: Etomidate 40mg/20ml Inj IV ONE (14:04)
[2017-08-09] MEDS ORDERED: Haloperidol 5mg/ml Inj IM PRN (14:30)
[2017-08-09] MEDS ORDERED: D5 1/2NS 1000ml IV ONE (15:29)
[2017-08-09] MEDS ORDERED: NS 550ML IV ONE (16:28)
[2017-08-09] MEDS ORDERED: Tubing IV Secondary IV ONE (16:28)
--- NOTE | 2017-08-09 19:02 | Cardiology Progress Note ---
Assessment/Plan Assessment/Plan [id number] Objective Last 24 Hour Vital Signs Date Time Temp Pulse Resp B/P (MAP) Pulse Ox O2 Delivery O2 Flow Rate FiO2 08/09/17 16:00 98.2 114 22 128/56 98 Venturi Mask 08/09/17 12:00 115 08/09/17 12:00 98.8 115 20 109/54 100 Venturi Mask 55 08/09/17 10:00 109 25 93/58 100 Non-Rebreather 100 08/09/17 09:44 92 20 Venturi Mask 14.0 55 08/09/17 09:31 100 Venturi Mask 15.0 55 08/09/17 09:00 106 27 89/48 100 Non-Rebreather 100 08/09/17 08:00 98.6 103 23 107/58 100 Non-Rebreather 100 08/09/17 08:00 106 08/09/17 07:21 Non-Rebreather 15.0 100 08/09/17 07:20 100 Non-Rebreather 15.0 100 08/09/17 07:00 91 27 94/42 100 Non-Rebreather 100 08/09/17 06:00 104 28 93/41 99 Non-Rebreather 100 08/09/17 05:00 99 28 112/67 100 Non-Rebreather 100 08/09/17 04:00 112 08/09/17 04:00 98.6 112 23 96/52 100 Non-Rebreather 100 08/09/17 03:00 104 27 99/56 99 Non-Rebreather 100 08/09/17 02:00 106 24 100/64 99 Non-Rebreather 100 08/09/17 01:00 107 22 88/49 99 Non-Rebreather 100 08/09/17 00:00 98.8 106 22 86/46 99 Non-Rebreather 100 08/09/17 00:00 106 08/08/17 23:00 112 27 83/50 99 Non-Rebreather 100 08/08/17 22:00 117 24 88/52 100 Non-Rebreather 100 08/08/17 21:00 104 23 90/52 99 Non-Rebreather 100 08/08/17 20:00 110 08/08/17 20:00 110 29 99/57 99 Non-Rebreather 100 08/08/17 19:30 Non-Rebreather 15.0 100 08/08/17 19:30 99 Non-Rebreather 15.0 100 Intake and Output 08/09/17 08/10/17 19:00 07:00 Intake Total 1119.888 ml Output Total 180 ml Balance 939.888 ml Intake Oral 650 ml IV Total 469.888 ml Output Urine Total 180 ml Laboratory Tests Test 08/09/17 04:15 08/09/17 07:45 White Blood Count 15.7 K/UL (4.8-10.8) H Red Blood Count 4.47 M/UL (4.70-6.10) L Hemoglobin 14.4 G/DL (14.2-18.0) Hematocrit 42.2 % (42.0-52.0) Mean Corpuscular Volume 95 FL (80-99) Mean Corpuscular Hemoglobin 32.2 PG (27.0-31.0) H Mean Corpuscular Hemoglobin Concent 34.0 G/DL (32.0-36.0) Red Cell Distribution Width 11.9 % (11.6-14.8) Platelet Count 285 K/UL (150-450) Mean Platelet Volume 6.5 FL (6.5-10.1) Neutrophils (%) (Auto) 83.2 % (45.0-75.0) H Lymphocytes (%) (Auto) 9.9 % (20.0-45.0) L Monocytes (%) (Auto) 6.1 % (1.0-10.0) Eosinophils (%) (Auto) 0.6 % (0.0-3.0) Basophils (%) (Auto) 0.3 % (0.0-2.0) Sodium Level 141 mEQ/L (135-145) Potassium Level 3.8 mEQ/L (3.4-4.9) Chloride Level 102 mEQ/L (98-107) Carbon Dioxide Level 22 mEQ/L (20-30) Anion Gap 17 (5-15) H Blood Urea Nitrogen 23 mg/dL (7-23) Creatinine 0.9 mg/dL (0.7-1.2) Estimat Glomerular Filtration Rate > 60 mL/min (>60) Glucose Level 79 mg/dL (74-106) # Hemoglobin A1c 4.8 % (< 6.0) Uric Acid 4.0 mg/dL (3.0-7.5) Calcium Level 9.1 mg/dL (8.6-10.2) Phosphorus Level 2.3 mg/dL (2.5-4.8) L Magnesium Level 2.0 mg/dL (1.7-2.5) Total Bilirubin 0.4 mg/dL (0.0-1.2) Aspartate Amino Transf (AST/SGOT) 41 U/L (5-40) H Alanine Aminotransferase (ALT/SGPT) 25 U/L (3-41) Alkaline Phosphatase 81 U/L (40-129) C-Reactive Protein, Quantitative 18.7 mg/dL (< 0.5) H Pro-B-Type Natriuretic Peptide 5339 pg/mL (0-125) H Total Protein 7.0 g/dL (6.6-8.7) Albumin 3.7 g/dL (3.5-5.2) Globulin 3.3 g/dL Albumin/Globulin Ratio 1.1 (1.0-2.7) Triglycerides Level 75 mg/dL (< 150) Cholesterol Level 141 mg/dL (< 200) LDL Cholesterol 63 mg/dL (60-99) HDL Cholesterol 63 mg/dL (> 60) H Cholesterol/HDL Ratio 2.2 (3.3-4.4) L Arterial Blood pH 7.401 (7.350-7.450) Arterial Blood Partial Pressure CO2 35.2 mmHg (35.0-45.0) Arterial Blood Partial Pressure O2 227.5 mmHg (75.0-100.0) H Arterial Blood HCO3 21.4 mmol/L (22.0-26.0) L Arterial Blood Oxygen Saturation 99.4 % (92.0-98.0) H Arterial Blood Base Excess -2.7 Johnnie Test Positive Microbiology Date/Time Source Procedure Growth Status 08/07/17 19:45 Nasal Nares MRSA Culture - Final NO METHICILLIN RESISTANT STAPH AUREUS... Complete 08/08/17 14:50 Urine,Clean Catch Urine Culture - Preliminary NO GROWTH Resulted 08/07/17 19:45 Rectum VRE Culture - Final NO VANCOMYCIN RESISTANT ENTEROCOCCUS ... Complete JESSICA GOODEN Aug 09, 2017 19:02
[2017-08-09] MEDS ORDERED: Ipratropium 0.02% Inh Soln 2.5ml UD HHN SCH (19:15)
[2017-08-09 20:02] LABS: TROPONIN I < 0.30 ng/mL (<=0.30)
[2017-08-09] MEDS ORDERED: Heparin 5000 units/ml inj SUBQ SCH (21:00)
[2017-08-09] MEDS ORDERED: Pantoprazole Inj IVP SCH (21:00)
[2017-08-10] MEDS ORDERED: Nitroglycerin Subl 0.4mg tab SL PRN (00:05)
[2017-08-10] MEDS: Ipratropium 0.02% Inh Soln 2.5ml UD HHN SCH ×4 (01:03→19:31)
[2017-08-10] MEDS ORDERED: DuoNeb 0.5-3(2.5)mg/3ml neb HHN PRN (02:00)
[2017-08-10] MEDS ORDERED: Haloperidol 5mg/ml Inj IM PRN (02:30)
[2017-08-10] MEDS: LORazepam Inj 2mg/ml 1ml IV PRN (03:04)
[2017-08-10 04:01] VITALS: BP 115/57
[2017-08-10 05:52] LABS: BASOPHILS % (AUTO) 0.5 % (0.0-2.0); EOSINOPHILS % (AUTO) 1.1 % (0.0-3.0); LYMPHOCYTES % (AUTO) 15.4 % (20.0-45.0); MEAN CORPUSCULAR HEMOGLOBIN 31.3 PG (27.0-31.0); MEAN CORPUSCULAR HGB CONC 33.6 G/DL (32.0-36.0); MEAN CORPUSCULAR VOLUME 93 FL (80-99); MEAN PLATELET VOLUME 6.5 FL (6.5-10.1); MONOCYTES % (AUTO) 10.2 % (1.0-10.0); NEUTROPHILS % (AUTO) 72.8 % (45.0-75.0); PLATELET COUNT 287 K/UL (150-450); RED BLOOD COUNT 4.46 M/UL (4.70-6.10); RED CELL DISTRIBUTION WIDTH 11.5 % (11.6-14.8); WHITE BLOOD COUNT 9.8 K/UL (4.8-10.8)
[2017-08-10] MEDS: Piperacillin/Tazobactam 3.375 GM in D5W 110 ML IVPB SCH ×2 (06:03→13:47)
[2017-08-10 06:08] LABS: TROPONIN I < 0.30 ng/mL (<=0.30)
[2017-08-10 06:42] LABS: ALANINE AMINOTRANSFERASE 27 U/L (3-41); ALBUMIN/GLOBULIN RATIO 1.5 (1.0-2.7); ANION GAP 16 (5-15); ASPARTATE AMINO TRANSFERASE 33 U/L (5-40); CALCIUM 9.1 mg/dL (8.6-10.2); CARBON DIOXIDE 25 mEQ/L (20-30); CHLORIDE 104 mEQ/L (98-107); CREATININE 0.9 mg/dL (0.7-1.2); CRP QUANT 9.2 mg/dL (< 0.5); GLOMERULAR FILTRATION RATE > 60 mL/min (>60); HEMOLYSIS 10; PHOSPHORUS 1.9 mg/dL (2.5-4.8); POTASSIUM 3.6 mEQ/L (3.4-4.9); SODIUM 145 mEQ/L (135-145); TOTAL PROTEIN 6.6 g/dL (6.6-8.7); URIC ACID 2.5 mg/dL (3.0-7.5)
[2017-08-10 08:00] VITALS: BP 117/65
[2017-08-10] MEDS: Heparin 5000 units/ml inj SUBQ SCH ×2 (08:42→20:47)
[2017-08-10] MEDS: Pantoprazole Inj IVP SCH ×2 (08:43→20:43)
[2017-08-10] MEDS: Venlafaxine XR 150mg cap ORAL SCH (08:43)
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
[2017-08-10] MEDS ORDERED: Potassium Phosphate 20 MM in NS 275 ML IV ONE (09:00)
[2017-08-10] MEDS ORDERED: Venlafaxine XR 150mg cap ORAL SCH (09:00)
[2017-08-10 12:00] VITALS: BP 111/61
--- NOTE | 2017-08-10 12:48 | Cardiology Report ---
APPROVED REPORT EKG Measurement Heart [id number] Normal sinus rhythm Nonspecific T wave abnormality Prolonged QT Abnormal ECG
--- NOTE | 2017-08-10 12:49 | Cardiology Report ---
APPROVED REPORT EKG Measurement Heart [id number] Sinus tachycardia T wave abnormality, consider lateral ischemia Prolonged QT Abnormal ECG
--- NOTE | 2017-08-10 13:22 | General Progress Note ---
Assessment/Plan Status: stable Status Narrative clinically improved Assessment/Plan - -Renal failure, likely dehydratrion (1) Respiratory arrest, now extubated (2) Narcotic-induced respiratory depression (3) Addiction to drug (4) Leukocytosis, improving Plan: Change IV to Isotonic- Add IV Protonix- monitor renal parameters- Avoid Nephrotoxics Per orders Subjective ROS Limited/Unobtainable: No Constitutional: Reports: weakness Allergies: Coded Allergies: No Known Allergies (Unverified , 01/28/17) Objective Last 24 Hour Vital Signs Date Time Temp Pulse Resp B/P (MAP) Pulse Ox O2 Delivery O2 Flow Rate FiO2 08/10/17 12:35 107 111/61 08/10/17 12:00 107 122 143 08/10/17 12:00 118 08/10/17 12:00 97.7 107 18 111/61 98 Room Air 08/10/17 08:00 112 08/10/17 08:00 98.2 109 18 117/65 98 Room Air 08/10/17 07:42 100 16 99 Room Air 08/10/17 07:41 112 08/10/17 07:30 Room Air 21 08/10/17 07:30 98 Room Air 21 08/10/17 07:30 105 16 98 Room Air 21 08/10/17 04:01 97.7 105 20 115/57 93 Room Air 08/10/17 03:47 101 08/10/17 01:11 112 16 99 Room Air 08/10/17 01:03 110 16 96 Room Air 08/10/17 00:00 102 08/09/17 23:41 97.9 107 20 110/71 97 Room Air 08/09/17 21:00 103 08/09/17 19:47 120 18 99 Room Air 08/09/17 19:39 98 Room Air 08/09/17 19:39 Room Air 08/09/17 19:38 116 18 98 Room Air 08/09/17 19:38 117 18 Room Air 08/09/17 16:00 98.2 114 22 128/56 98 Venturi Mask Intake and Output 08/10/17 08/11/17 19:00 07:00 Intake Total 110.0 ml Balance 110.0 ml IV Total 110.0 ml Laboratory Tests 08/09/17 19:38: Troponin I < 0.30 08/10/17 04:50: Troponin I < 0.30, White Blood Count 9.8, Red Blood Count 4.46L, Hemoglobin 14.0L, Hematocrit 41.6L, Mean Corpuscular Volume 93, Mean Corpuscular Hemoglobin 31.3H, Mean Corpuscular Hemoglobin Concent 33.6, Red Cell Distribution Width 11.5L, Platelet Count 287, Mean Platelet Volume 6.5, Neutrophils (%) (Auto) 72.8, Lymphocytes (%) (Auto) 15.4L, Monocytes (%) (Auto) 10.2H, Eosinophils (%) (Auto) 1.1, Basophils (%) (Auto) 0.5, Sodium Level 145, Potassium Level 3.6, Chloride Level 104, Carbon Dioxide Level 25, Anion Gap 16H , Blood Urea Nitrogen 11, Creatinine 0.9, Estimat Glomerular Filtration Rate > 60, Glucose Level 88, Uric Acid 2.5L, Calcium Level 9.1, Phosphorus Level 1.9L, Magnesium Level 3.0H, Total Bilirubin 0.5, Aspartate Amino Transf (AST/SGOT) 33 , Alanine Aminotransferase (ALT/SGPT) 27, Alkaline Phosphatase 73, Total Creatine Kinase 246H, C-Reactive Protein, Quantitative 9.2H, Pro-B-Type Natriuretic Peptide 1353H, Total Protein 6.6, Albumin 4.0, Globulin 2.6, Albumin /Globulin Ratio 1.5 Height (Feet): 6 Height (Inches): 1.00 Weight (Pounds): 204 General Appearance: no apparent distress Objective no change SHRUTI MCCRAY Aug 10, 2017 13:22
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
--- NOTE | 2017-08-10 14:06 | Cardiology Progress Note ---
Assessment/Plan Assessment/Plan 1. Respiratory failure, possibly related to drug overdose. 2. Bronchospasms. 3. Leukocytosis. 4. Nodular densities in the lungs. 5. Some evidence of segmental wall motion abnormalities. 6. orthostatic tachy midl hypotension he wants to go home his breathing is better all trop are neg i would like to have him repeat his echo to see resolution of swma i have discussed with him he is anxious to leave the hospital not clear to be if pulm [place] he will ready to dc i will order echo for am if still here otherwise will need to return to see me as out pt orthostatic noted will give lwo dose ivf i restarted atenolol for his sig tachy he has on standing Subjective Cardiovascular: Denies: chest pain, lightheadedness, palpitations Respiratory: Denies: shortness of breath Gastrointestinal/Abdominal: Denies: abdominal pain Genitourinary: Denies: burning Subjective chest soerness is better nota as sob now getting breathing treatment he indicated he has ptsd adn get 100 mg of atnolol dialy at home due his resting tachy Objective Last 24 Hour Vital Signs Date Time Temp Pulse Resp B/P (MAP) Pulse Ox O2 Delivery O2 Flow Rate FiO2 08/10/17 12:35 107 111/61 08/10/17 12:00 107 122 143 08/10/17 12:00 118 08/10/17 12:00 97.7 107 18 111/61 98 Room Air 08/10/17 08:00 112 08/10/17 08:00 98.2 109 18 117/65 98 Room Air 08/10/17 07:42 100 16 99 Room Air 08/10/17 07:41 112 08/10/17 07:30 Room Air 21 08/10/17 07:30 98 Room Air 21 08/10/17 07:30 105 16 98 Room Air 08/10/17 04:01 97.7 105 20 115/57 93 Room Air 08/10/17 03:47 101 08/10/17 01:11 112 16 99 Room Air 08/10/17 01:03 110 16 96 Room Air 08/10/17 00:00 102 08/09/17 23:41 97.9 107 20 110/71 97 Room Air 08/09/17 21:00 103 08/09/17 19:47 120 18 99 Room Air 08/09/17 19:39 98 Room Air 08/09/17 19:39 Room Air 08/09/17 19:38 116 18 98 Room Air 08/09/17 19:38 117 18 Room Air 08/09/17 16:00 98.2 114 22 128/56 98 Venturi Mask General Appearance: no apparent distress, alert Neck: supple Cardiovascular: normal rate, tachycardia Respiratory/Chest: lungs clear - whiel gettign breathign treatment Abdomen: normal bowel sounds, non tender, soft Extremities: non-tender, no swelling Intake and Output 08/10/17 08/11/17 19:00 07:00 Intake Total 110.0 ml Balance 110.0 ml IV Total 110.0 ml Laboratory Tests Test 08/09/17 19:38 08/10/17 04:50 Troponin I < 0.30 ng/mL (<=0.30) < 0.30 ng/mL (<=0.30) White Blood Count 9.8 K/UL (4.8-10.8) Red Blood Count 4.46 M/UL (4.70-6.10) L Hemoglobin 14.0 G/DL (14.2-18.0) L Hematocrit 41.6 % (42.0-52.0) L Mean Corpuscular Volume 93 FL (80-99) Mean Corpuscular Hemoglobin 31.3 PG (27.0-31.0) H Mean Corpuscular Hemoglobin Concent 33.6 G/DL (32.0-36.0) Red Cell Distribution Width 11.5 % (11.6-14.8) L Platelet Count 287 K/UL (150-450) Mean Platelet Volume 6.5 FL (6.5-10.1) Neutrophils (%) (Auto) 72.8 % (45.0-75.0) Lymphocytes (%) (Auto) 15.4 % (20.0-45.0) L Monocytes (%) (Auto) 10.2 % (1.0-10.0) H Eosinophils (%) (Auto) 1.1 % (0.0-3.0) Basophils (%) (Auto) 0.5 % (0.0-2.0) Sodium Level 145 mEQ/L (135-145) Potassium Level 3.6 mEQ/L (3.4-4.9) Chloride Level 104 mEQ/L (98-107) Carbon Dioxide Level 25 mEQ/L (20-30) Anion Gap 16 (5-15) H Blood Urea Nitrogen 11 mg/dL (7-23) Creatinine 0.9 mg/dL (0.7-1.2) Estimat Glomerular Filtration Rate > 60 mL/min (>60) Glucose Level 88 mg/dL (74-106) Uric Acid 2.5 mg/dL (3.0-7.5) L Calcium Level 9.1 mg/dL (8.6-10.2) Phosphorus Level 1.9 mg/dL (2.5-4.8) L Magnesium Level 3.0 mg/dL (1.7-2.5) H Total Bilirubin 0.5 mg/dL (0.0-1.2) Aspartate Amino Transf (AST/SGOT) 33 U/L (5-40) Alanine Aminotransferase (ALT/SGPT) 27 U/L (3-41) Alkaline Phosphatase 73 U/L (40-129) Total Creatine Kinase 246 U/L (38-174) H C-Reactive Protein, Quantitative 9.2 mg/dL (< 0.5) H Pro-B-Type Natriuretic Peptide 1353 pg/mL (0-125) H Total Protein 6.6 g/dL (6.6-8.7) Albumin 4.0 g/dL (3.5-5.2) Globulin 2.6 g/dL Albumin/Globulin Ratio 1.5 (1.0-2.7) Microbiology Date/Time Source Procedure Growth Status 08/07/17 19:45 Nasal Nares MRSA Culture - Final NO METHICILLIN RESISTANT STAPH AUREUS... Complete 08/08/17 14:50 Urine,Clean Catch Urine Culture - Preliminary NO GROWTH AFTER 24 HOURS Resulted 08/07/17 19:45 Rectum VRE Culture - Final NO VANCOMYCIN RESISTANT ENTEROCOCCUS ... Complete JESSICA GOODEN Aug 10, 2017 14:06
--- NOTE | 2017-08-10 14:20 | Pulmonology Progress Note ---
Assessment/Plan Assessment/Plan ASSESSMENT drug overdose narcotic induced respiratory depression, leading to respiratory arrest and requiring oral intubation s/p extubation acute toxic encephalopathy 2 to drug OD renal failure likely due to dehydration -resolved dehydration -resolved possible aspiration PNA leucocytosis -resolved Hx of IV drug abuse ( heroine) opioid dependency nicotine dependence with withdrawal evidence of segmental wall motion abnormalities. orthostatic tachycardia PLAN OF CARE JULIAN gentle IVF cardio follows orthostatic VS with tachycardia started on BB ECHO with EF 40% repeat ECHO in am per cardio cardio noted segmental wall motion abnormalities abx ID follows urine tox screen + BZD, barbiturates, marijuana psych follows no criteria for 5150 or hold need inpatient drug rehab continue Effexor and Remeron as was on before CXR with R infiltrate fup with CXR in am DVT GI prophylaxis Nicotine patch certified alcohol drug counselor on abstinence from illicit street drugs discussed with pt, wants to leave, but stated will stay till tomorrow until ECHO done dc plan for tomorrow after ECHO need input from ID re abx case discussed and evaluated by supervising physician Subjective Allergies: Coded Allergies: No Known Allergies (Unverified , 01/28/17) Subjective denies chest pain, SOB self extubated on RA pulse ox stable Objective Last 24 Hour Vital Signs Date Time Temp Pulse Resp B/P (MAP) Pulse Ox O2 Delivery O2 Flow Rate FiO2 08/10/17 13:58 96 16 99 Room Air 08/10/17 12:35 107 111/61 08/10/17 12:00 107 122 143 08/10/17 12:00 118 08/10/17 12:00 97.7 107 18 111/61 98 Room Air 08/10/17 08:00 112 08/10/17 08:00 98.2 109 18 117/65 98 Room Air 08/10/17 07:42 100 16 99 Room Air 08/10/17 07:41 112 08/10/17 07:30 Room Air 08/10/17 07:30 98 Room Air 08/10/17 07:30 105 16 98 Room Air 08/10/17 04:01 97.7 105 20 115/57 93 Room Air 08/10/17 03:47 101 08/10/17 01:11 112 16 99 Room Air 08/10/17 01:03 110 16 96 Room Air 08/10/17 00:00 102 08/09/17 23:41 97.9 107 20 110/71 97 Room Air 08/09/17 21:00 103 08/09/17 19:47 120 18 99 Room Air 08/09/17 19:39 98 Room Air 08/09/17 19:39 Room Air 08/09/17 19:38 116 18 98 Room Air 08/09/17 19:38 117 18 Room Air 08/09/17 16:00 98.2 114 22 128/56 98 Venturi Mask Intake and Output 08/10/17 08/11/17 19:00 07:00 Intake Total 110.0 ml Balance 110.0 ml IV Total 110.0 ml General Appearance: WD/WN, no acute distress HEENT: normocephalic, atraumatic, anicteric, mucous membranes moist, PERRL Respiratory/Chest: lungs clear, no accessory muscle use Cardiovascular: normal peripheral pulses, regular rhythm - ST on tele , no JVD Abdomen: non distended Genitourinary: normal external genitalia Extremities: no edema, pedal pulses normal Neurologic/Psychiatric: alert, oriented x 3, responsive, normal mood/affect Lymphatic: no neck adenopathy Musculoskeletal: normal muscle bulk Microbiology Date/Time Source Procedure Growth Status 08/07/17 19:45 Nasal Nares MRSA Culture - Final NO METHICILLIN RESISTANT STAPH AUREUS... Complete 08/08/17 14:50 Urine,Clean Catch Urine Culture - Preliminary NO GROWTH AFTER 24 HOURS Resulted 08/07/17 19:45 Rectum VRE Culture - Final NO VANCOMYCIN RESISTANT ENTEROCOCCUS ... Complete Laboratory Tests 08/09/17 19:38: Troponin I < 0.30 08/10/17 04:50: Troponin I < 0.30, White Blood Count 9.8, Red Blood Count 4.46L, Hemoglobin 14.0L, Hematocrit 41.6L, Mean Corpuscular Volume 93, Mean Corpuscular Hemoglobin 31.3H, Mean Corpuscular Hemoglobin Concent 33.6, Red Cell Distribution Width 11.5L, Platelet Count 287, Mean Platelet Volume 6.5, Neutrophils (%) (Auto) 72.8, Lymphocytes (%) (Auto) 15.4L, Monocytes (%) (Auto) 10.2H, Eosinophils (%) (Auto) 1.1, Basophils (%) (Auto) 0.5, Sodium Level 145, Potassium Level 3.6, Chloride Level 104, Carbon Dioxide Level 25, Anion Gap 16H , Blood Urea Nitrogen 11, Creatinine 0.9, Estimat Glomerular Filtration Rate > 60, Glucose Level 88, Uric Acid 2.5L, Calcium Level 9.1, Phosphorus Level 1.9L, Magnesium Level 3.0H, Total Bilirubin 0.5, Aspartate Amino Transf (AST/SGOT) 33 , Alanine Aminotransferase (ALT/SGPT) 27, Alkaline Phosphatase 73, Total Creatine Kinase 246H, C-Reactive Protein, Quantitative 9.2H, Pro-B-Type Natriuretic Peptide 1353H, Total Protein 6.6, Albumin 4.0, Globulin 2.6, Albumin /Globulin Ratio 1.5 Current Medications Medications (Trade) Dose Ordered Sig/Deon Route PRN Reason Start Time Stop Time Status Last Admin Dose Admin Acetaminophen (Tylenol) 650 mg Q4H PRN ORAL T>100.5 08/10/17 02:00 09/06/17 13:59 Albuterol/ Ipratropium (DuoNeb 0.5-3(2.5)mg/3ml) 3 ml Q4H PRN HHN Shortness of Breath 08/10/17 02:00 08/12/17 13:59 Atenolol (Tenormin) 50 mg DAILY ORAL 08/10/17 13:00 09/09/17 12:59 08/10/17 12:35 Dextrose (Dextrose 50%) STAT PRN IV Hypoglycemia 08/10/17 14:00 09/06/17 13:59 Haloperidol Lactate (Haldol) 5 mg Q4H PRN IM AGITATION 08/10/17 02:30 09/08/17 14:29 Heparin Sodium (Porcine) (Heparin 5000 units/ml) 5,000 units EVERY 12 HOURS SUBQ 08/10/17 09:00 09/07/17 08:59 08/10/17 08:42 Ipratropium [place] (Atrovent) 500 mcg Q6HRT HHN 08/10/17 01:00 08/14/17 19:14 08/10/17 13:58 Lorazepam (Ativan 2mg/ml 1ml) 1 mg Q2H PRN IV anxiety 08/10/17 02:00 08/16/17 13:59 08/10/17 03:04 Mirtazapine (Remeron) 7.5 mg QHS ORAL 08/10/17 21:00 09/08/17 20:59 Nicotine (Nicoderm) 1 patch Q24H TDERMAL 08/10/17 12:00 09/09/17 11:59 08/10/17 12:08 Nitroglycerin (Ntg) 0.4 mg Q5M PRN SL Prn Chest Pain 08/10/17 00:05 09/06/17 21:44 Ondansetron HCl (Zofran) 4 mg Q6H PRN IVP Nausea & Vomiting 08/10/17 03:45 09/06/17 21:44 Pantoprazole (Protonix) 40 mg EVERY 12 HOURS IVP 08/10/17 09:00 09/07/17 14:59 08/10/17 08:43 Piperacillin Sod/ Tazobactam Sod 3.375 gm/Dextrose 110 ml @ 27.5 mls/hr EVERY 8 HOURS IVPB 08/10/17 06:00 08/14/17 14:59 08/10/17 13:47 Venlafaxine HCl (Effexor-XR) 150 mg DAILY ORAL 08/10/17 09:00 09/08/17 11:59 08/10/17 08:43 Chanelle David NP (Vanchtein) Aug 10, 2017 14:20
[2017-08-10] MEDS ORDERED: Tubing IV Secondary IV ONE (14:46)
[2017-08-10 16:00] VITALS: BP 109/61
[2017-08-10] MEDS: Loperamide 2mg cap ORAL PRN (18:22)
[2017-08-10 20:24] VITALS: BP 130/78
[2017-08-10] MEDS: Augmentin 875mg Tab ORAL SCH (20:41)
[2017-08-11 00:05] VITALS: BP 105/54
[2017-08-11] MEDS: Ipratropium 0.02% Inh Soln 2.5ml UD HHN SCH ×2 (01:27→07:54)
[2017-08-11] MEDS: LORazepam Inj 2mg/ml 1ml IV PRN (03:01)
[2017-08-11 04:27] VITALS: BP 101/57
[2017-08-11] MEDS: Loperamide 2mg cap ORAL PRN ×2 (05:07→09:20)
[2017-08-11 08:00] VITALS: BP 126/78
[2017-08-11 09:00] VITALS: BP 126/78
[2017-08-11] MEDS: Venlafaxine XR 150mg cap ORAL SCH (09:00)
[2017-08-11] MEDS: Pantoprazole Inj IVP SCH (09:00)
[2017-08-11] MEDS: Augmentin 875mg Tab ORAL SCH (09:00)
[2017-08-11] MEDS: Heparin 5000 units/ml inj SUBQ SCH (09:02)
[2017-08-11 10:44] LABS: OTHERS PATHOLOGIST COMMENT
--- NOTE | 2017-08-11 11:07 | Cardiology Report ---
APPROVED REPORT EXAM: Two-dimensional and M-mode echocardiogram with Doppler and color Doppler. INDICATION Tachycardia M-Mode DIMENSIONS IVSd1.3 (0.7-1.1cm)Left Atrium (MM)2.9 (1.6-4.0cm) LVDd5.2 (3.5-5.6cm)Aortic Root3.0 (2.0-3.7cm) PWd1.1 (0.7-1.1cm)Aortic Cusp Exc.2.4 (1.5-2.0cm) LVDs3.6 (2.5-4.0cm) PWs1.3 cm Normal left ventricular chamber size, systolic function and wall motion. Left ventricular ejection fraction estimated to be 55 %. Mild left ventricular hypertrophy. Anterior Echo-free space, may be due to pericardial fat or effusion. All other cardiac chamber sizes are within normal limits. Normal appearing aortic, mitral, pulmonic and tricuspid valves. IVC at normal size with physiological collapse. A color flow and spectral Doppler study was performed and revealed: No aortic insufficiency. No mitral insufficiency Mitral inflow indicate normal left ventricular diastolic function. No tricuspid regurgitation. Tricuspid systolic velocities suggests peak right ventricular systolic pressure of 10 mmHg. No pulmonic regurgitation present.
[2017-08-11 11:11] LABS: EOSINOPHILS % (AUTO) 0.9 % (0.0-3.0); LYMPHOCYTES % (AUTO) 15.7 % (20.0-45.0); MEAN CORPUSCULAR HEMOGLOBIN 31.6 PG (27.0-31.0); MEAN CORPUSCULAR HGB CONC 33.9 G/DL (32.0-36.0); MEAN CORPUSCULAR VOLUME 93 FL (80-99); MEAN PLATELET VOLUME 6.7 FL (6.5-10.1); MONOCYTES % (AUTO) 7.2 % (1.0-10.0); NEUTROPHILS % (AUTO) 75.3 % (45.0-75.0); PLATELET COUNT 333 K/UL (150-450); RED BLOOD COUNT 4.75 M/UL (4.70-6.10); RED CELL DISTRIBUTION WIDTH 11.6 % (11.6-14.8); WHITE BLOOD COUNT 9.3 K/UL (4.8-10.8)
--- NOTE | 2017-08-11 11:14 | Diagnostic Imaging Report ---
Indication: SOB Technique: One view of the chest Comparison: 08/09/2017 Findings: There is interim marked improvement of previously demonstrated mostly right-sided parenchymal disease, with minimal residual. Pleural spaces remain clear. Heart size is normal Impression: Markedly improved parenchymal disease, over 2 days, as described. Minimal residual
[2017-08-11 11:27] LABS: ANION GAP 14 (5-15); CALCIUM 9.2 mg/dL (8.6-10.2); CARBON DIOXIDE 25 mEQ/L (20-30); CHLORIDE 106 mEQ/L (98-107); CREATININE 0.9 mg/dL (0.7-1.2); GLOMERULAR FILTRATION RATE > 60 mL/min (>60); HEMOLYSIS 0; POTASSIUM 3.5 mEQ/L (3.4-4.9); SODIUM 145 mEQ/L (135-145)
[2017-08-11] MEDS ORDERED: AUGMENTIN 500-1 EACH ORAL (11:30)
--- NOTE | 2017-08-11 11:33 | Pulmonology Progress Note ---
Assessment/Plan Assessment/Plan ASSESSMENT drug overdose narcotic induced respiratory depression, leading to respiratory arrest and requiring oral intubation s/p extubation acute toxic encephalopathy 2 to drug OD renal failure likely due to dehydration -resolved dehydration -resolved possible aspiration PNA leucocytosis -resolved Hx of IV drug abuse ( heroine) opioid dependency nicotine dependence with withdrawal evidence of segmental wall motion abnormalities. orthostatic tachycardia PLAN OF CARE JULIAN gentle IVF cardio follows orthostatic VS with tachycardia started on BB tachy resolved initial ECHO with EF 40% repeated ECHO with EF 55% cardio noted segmental wall motion abnormalities on initial ECHO, last one stable abx ID follows home on oral abx x 3 more days urine tox screen + BZD, barbiturates, marijuana psych follows no criteria for 5150 or hold will benefit inpatient drug rehab continue Effexor and Remeron as was on before CXR with R infiltrate fup with CXR in am DVT GI prophylaxis Nicotine patch family life counselor on abstinence from illicit street drugs and smoking cessation dc today case discussed and evaluated by supervising physician Subjective Allergies: Coded Allergies: No Known Allergies (Unverified , 01/28/17) Subjective denies chest pain, SOB repeated ECHO this am normal with pEF Objective Last 24 Hour Vital Signs Date Time Temp Pulse Resp B/P (MAP) Pulse Ox O2 Delivery O2 Flow Rate FiO2 08/11/17 09:00 92 126/78 08/11/17 08:00 99.7 92 22 126/78 100 Room Air 08/11/17 08:00 94 08/11/17 07:56 88 20 98 Room Air 08/11/17 07:51 85 16 96 Room Air 08/11/17 04:27 97.7 92 19 101/57 96 Room Air 08/11/17 03:49 91 08/11/17 01:36 78 18 99 Room Air 08/11/17 01:27 75 18 96 Room Air 08/11/17 00:05 97.7 65 20 105/54 96 08/10/17 23:38 79 08/10/17 20:43 92 130/78 08/10/17 20:24 97.7 92 19 130/78 96 Endotracheal Tube 08/10/17 20:00 87 08/10/17 19:40 93 18 99 Room Air 08/10/17 19:31 Room Air 08/10/17 19:31 98 Room Air 08/10/17 19:31 92 18 97 Room Air 08/10/17 16:00 97.0 83 18 109/61 98 Room Air 08/10/17 16:00 89 08/10/17 14:08 96 16 100 Room Air 08/10/17 13:58 96 16 99 Room Air 21 08/10/17 12:35 107 111/61 08/10/17 12:00 107 122 143 08/10/17 12:00 118 08/10/17 12:00 97.7 107 18 111/61 98 Room Air Intake and Output 08/11/17 08/12/17 19:00 07:00 Intake Total 260 ml Balance 260 ml Intake Oral 260 ml Objective General Appearance: WD/WN, no acute distress HEENT: normocephalic, atraumatic, anicteric, mucous membranes moist, PERRL Respiratory/Chest: lungs clear, no accessory muscle use Cardiovascular: normal peripheral pulses, regular rhythm - SR on tele , no JVD Abdomen: non distended Genitourinary: normal external genitalia Extremities: no edema, pedal pulses normal Neurologic/Psychiatric: alert, oriented x 3, responsive, normal mood/affect Lymphatic: no neck adenopathy Musculoskeletal: normal muscle bulk Microbiology Date/Time Source Procedure Growth Status 08/09/17 04:20 Blood Blood Culture - Preliminary NO GROWTH AFTER 24 HOURS Resulted 08/09/17 04:15 Blood Blood Culture - Preliminary NO GROWTH AFTER 24 HOURS Resulted 08/09/17 04:30 Sputum Gram Stain - Final Resulted 08/09/17 04:30 Sputum Culture - Preliminary Yeast Species Usual Upper Respiratory Marie Resulted 08/08/17 14:50 Urine,Clean Catch Urine Culture - Final NO GROWTH AFTER 48 HOURS Complete Laboratory Tests 08/11/17 10:50: White Blood Count 9.3, Red Blood Count 4.75, Hemoglobin 15.0, Hematocrit 44.3, Mean Corpuscular Volume 93, Mean Corpuscular Hemoglobin 31.6H, Mean Corpuscular Hemoglobin Concent 33.9, Red Cell Distribution Width 11.6, Platelet Count 333, Mean Platelet Volume 6.7, Neutrophils (%) (Auto) 75.3H, Lymphocytes (%) (Auto) 15.7L, Monocytes (%) (Auto) 7.2, Eosinophils (%) (Auto) 0.9, Basophils (%) (Auto ) 1.0, Sodium Level 145, Potassium Level 3.5, Chloride Level 106, Carbon Dioxide Level 25, Anion Gap 14, Blood Urea Nitrogen 11, Creatinine 0.9, Estimat Glomerular Filtration Rate > 60, Glucose Level 113H, Calcium Level 9.2 Current Medications Medications (Trade) Dose Ordered Sig/Deon Route PRN Reason Start Time Stop Time Status Last Admin Dose Admin Acetaminophen (Tylenol) 650 mg Q4H PRN ORAL T>100.5 08/10/17 02:00 09/06/17 13:59 Albuterol/ Ipratropium (DuoNeb 0.5-3(2.5)mg/3ml) 3 ml Q4H PRN HHN Shortness of Breath 08/10/17 02:00 08/12/17 13:59 Amoxicillin/ Clavulanate Potassium (Augmentin) 875 mg EVERY 12 HOURS ORAL 08/10/17 21:00 08/17/17 20:59 08/11/17 09:00 Atenolol (Tenormin) 50 mg Q12HR ORAL 08/10/17 21:00 09/09/17 20:59 08/11/17 09:00 Dextrose (Dextrose 50%) STAT PRN IV Hypoglycemia 08/10/17 14:00 09/06/17 13:59 Haloperidol Lactate (Haldol) 5 mg Q4H PRN IM AGITATION 08/10/17 02:30 09/08/17 14:29 Heparin Sodium (Porcine) (Heparin 5000 units/ml) 5,000 units EVERY 12 HOURS SUBQ 08/10/17 09:00 09/07/17 08:59 08/11/17 09:02 Ipratropium [place] (Atrovent) 500 mcg Q6HRT HHN 08/10/17 01:00 08/14/17 19:14 08/11/17 07:54 Loperamide HCl (Imodium) 2 mg Q4H PRN ORAL Diarrhea 08/10/17 17:45 09/09/17 17:44 08/11/17 09:20 Lorazepam (Ativan 2mg/ml 1ml) 1 mg Q2H PRN IV anxiety 08/10/17 02:00 08/16/17 13:59 08/11/17 03:01 Mirtazapine (Remeron) 7.5 mg QHS ORAL 08/10/17 21:00 09/08/17 20:59 08/10/17 20:41 Nicotine (Nicoderm) 1 patch Q24H TDERMAL 08/10/17 12:00 09/09/17 11:59 08/10/17 12:08 Nitroglycerin (Ntg) 0.4 mg Q5M PRN SL Prn Chest Pain 08/10/17 00:05 09/06/17 21:44 Ondansetron HCl (Zofran) 4 mg Q6H PRN IVP Nausea & Vomiting 08/10/17 03:45 09/06/17 21:44 Pantoprazole (Protonix) 40 mg EVERY 12 HOURS IVP 08/10/17 09:00 09/07/17 14:59 08/11/17 09:00 Venlafaxine HCl (Effexor-XR) 150 mg DAILY ORAL 08/10/17 09:00 09/08/17 11:59 08/11/17 09:00 [facility] CenterChanelle Gallardo NP Aug 11, 2017 11:33
[2017-08-11] MEDS ORDERED: 1/2 NS 1000ml IV ONE (12:18)
[2017-08-11] MEDS ORDERED: NS 550ML IV ONE (12:18)
--- NOTE | 2017-08-11 14:30 | General Progress Note ---
Assessment/Plan Status: stable - from renal stand Assessment/Plan - -Renal failure, likely dehydratrion (1) Respiratory arrest, now extubated (2) Narcotic-induced respiratory depression (3) Addiction to drug (4) Leukocytosis, improving Plan: DC IV DC planning Subjective Date patient seen: Aug 11, 2017 Time patient seen: 09:30 ROS Limited/Unobtainable: No Constitutional: Reports: malaise Allergies: Coded Allergies: No Known Allergies (Unverified , 01/28/17) Objective Last 24 Hour Vital Signs Date Time Temp Pulse Resp B/P (MAP) Pulse Ox O2 Delivery O2 Flow Rate FiO2 08/11/17 12:00 85 08/11/17 09:00 92 126/78 08/11/17 08:00 99.7 92 22 126/78 100 Room Air 08/11/17 08:00 94 08/11/17 07:56 88 20 98 Room Air 08/11/17 07:51 85 16 96 Room Air 21 08/11/17 04:27 97.7 92 19 101/57 96 Room Air 08/11/17 03:49 91 08/11/17 01:36 78 18 99 Room Air 08/11/17 01:27 75 18 96 Room Air 08/11/17 00:05 97.7 65 20 105/54 96 08/10/17 23:38 79 08/10/17 20:43 92 130/78 08/10/17 20:24 97.7 92 19 130/78 96 Endotracheal Tube 08/10/17 20:00 87 08/10/17 19:40 93 18 99 Room Air 08/10/17 19:31 Room Air 08/10/17 19:31 98 Room Air 08/10/17 19:31 92 18 97 Room Air 08/10/17 16:00 97.0 83 18 109/61 98 Room Air 08/10/17 16:00 89 Intake and Output 08/11/17 08/12/17 19:00 07:00 Intake Total 260 ml Balance 260 ml Intake Oral 260 ml Laboratory Tests 08/11/17 10:50: White Blood Count 9.3, Red Blood Count 4.75, Hemoglobin 15.0, Hematocrit 44.3, Mean Corpuscular Volume 93, Mean Corpuscular Hemoglobin 31.6H, Mean Corpuscular Hemoglobin Concent 33.9, Red Cell Distribution Width 11.6, Platelet Count 333, Mean Platelet Volume 6.7, Neutrophils (%) (Auto) 75.3H, Lymphocytes (%) (Auto) 15.7L, Monocytes (%) (Auto) 7.2, Eosinophils (%) (Auto) 0.9, Basophils (%) (Auto ) 1.0, Sodium Level 145, Potassium Level 3.5, Chloride Level 106, Carbon Dioxide Level 25, Anion Gap 14, Blood Urea Nitrogen 11, Creatinine 0.9, Estimat Glomerular Filtration Rate > 60, Glucose Level 113H, Calcium Level 9.2 Height (Feet): 6 Height (Inches): 1.00 Weight (Pounds): 205 General Appearance: no apparent distress Objective no change SHRUTI MCCRAY Aug 11, 2017 14:30
--- NOTE | 2017-08-11 22:45 | Progress Note ---
DATE: 08/11/2017 Subjective: The patient's mental condition is unchanged since previous encounter. Continues to be sarcastic and minimize the current he is in. He has poor insight and judgment. Mental Status Examination: The patient is alert and oriented times self, place, and situation he is in. Mood is neutral. Affect is full range. Congruent with mood. Thought process is concrete. Thought content, no suicidal or homicidal ideation. No delusions. No AVH. ASSESSMENT: Polysubstance dependence. Plan: The patient requested Seroquel. I asked him to see his psychiatrist. Sally Miramontes M.D. DR: HUMAIRA JOB#: [id number] CC:
--- NOTE | 2017-08-12 01:00 | Progress Note ---
DATE: 08/11/2017 Subjective: The patient has poor insight and judgment into his mental condition. He is very sarcastic. He still denies overdosing on opiates. He denies having a suicidal ideation and he has poor insight and judgment into his drug use issues. Mental Status Examination: Alert and oriented times self, place, and situation he is in. Mood is neutral. Affect is superficial. Thought process is concrete. Thought content, there is no suicidal or homicidal ideation. ASSESSMENT: Polysubstance abuse, status post overdose. Plan: The patient will be continued on current medications. He is not prescribed any Seroquel. Sally Miramontes M.D. DR: HUMAIRA JOB#: [id number] CC:
--- NOTE | 2017-08-15 10:30 | Discharge Summary 2 SIG ---
DATE OF ADMISSION: 08/07/2017 DATE OF DISCHARGE: 08/11/2017 Reason For Admission: 27-year-old male with a history of polysubstance abuse, was brought in by ambulance for suspected overdose. The patient's respiratory rate was 12. The patient was placed on 100% nonrebreathing mask. In the ED, patient was given naloxone x2 with minimal response. The patient was vomited repeatedly, suspected aspiration. ABG revealed acute hypoxemic hypercapnic respiratory failure with pH of 7.087 and pCO2 of 78.7. At that time, the patient was already intubated. Patient was intubated emergently for airway protection and respiratory arrest. Laboratory workup revealed leukocytosis. Mild acute kidney injury. Mild rhabdomyolysis. EKG revealed no acute changes and demonstrated normal sinus rhythm. The patient was admitted for further management. ADMITTING DIAGNOSES: 1. Drug overdose, 2. Narcotic-induced respiratory depression leading to respiratory arrest 3. Respiratory arrest, requiring oral intubation. 4. Acute toxic encephalopathy secondary to drug overdose. 5. Renal failure, likely secondary to dehydration and or drug overdose 6. Dehydration. 7. Possible aspiration pneumonia versus pneumonitis. 8. Leukocytosis. 9. History of intravenous drug abuse. 10. Opioid dependency. Hospital Stay: The patient was admitted. The patient was initially in intensive care unit. ID and Nephrology consults along with psychiatric consult were requested. The patient status post self extubation, after waking up. Placed initially on supplemental oxygen to keep pulse oximetry above 92%. Pulmonary toilet was provided as needed. Subsequently weaned to room air, pulse oximetry was stable. The patient was started on empiric antibiotics. ID clsoely followed. Blood culture negative. Urine culture negative. Sputum culture revealed Ame. Initial chest x-ray was done after intubation and revealed satisfactory endotracheal intubation and mild interstitial congestion. Followup chest x-ray done after extubation and revealed unilateral nodular/interstitial opacity throughout the right lung, increased from the previous study. Chest x-ray on 08/11/2017 revealed markedly improved parenchymal disease over two days with minimum residual. Echocardiogram initially was done on 08/08/2017 and revealed left ventricular ejection fraction of 40% with mid to distal posterior and inferior septum and mid anterior wall hypokinesis. Cardiology consult was requested. Weaving Machine Operator had seen and evaluated the patient. Troponin was negative, but Pro BNP - 5300. Toxicology screen was positive for marijuana, benzodiazepine, and barbiturates and negative for opiates. Blood pressure was low, anywhere between 89/48 to 128/56 with heart rate of 109 to 140. The patient had some chest wall tenderness as the cause of his pain. Weaving Machine Operator suggested to keep the patient on telemetry and repeat cardiac enzymes and echocardiogram to check for resolution of abnormal segmental wall motion abnormality. Recommended to avoid beta-agonist inhaler. For orthostatic tachycardia patient was started on IV hydration (due to suspected dehydration) and low dose of beta shayan. Breathing improved, tachycardia resolved. All troponin were negative. Repeated echocardiogram revealed preserved ejection fraction of 55% with no evidence of wall motion abnormality. Sinus tachycardia resolved with hydration, was likely due to possibly dehydration. Chest x-ray showed significant improvement. The patient's clinical picture was more consistent with aspiration pneumonitis than pneumonia. Continue empiric antibiotic for additional three days as recommended by ID. Initial leukocytosis -28.5, on the day of discharge WBC - 9.3. Initial creatinine - 1.3 , down to 0.9 on discharge. CK from 401 down to 246. Troponin negative. Psychiatrist followed the patient. The patient had no criteria for 5150 hold. However, the patient will benefit from inpatient drug rehabilitation, which was discussed extensively with the patient by psychiatrist. Effexor and Remeron were continued. DVT and GI prophylaxis was provided. Nicotine patch was provided. The patient was counseled on abstinence from illicit street drugs and smoking cessation. The patient was stable for discharge. FINAL DIAGNOSES: 1. Drug overdose 2. Narcotic-induced respiratory depression leading to respiratory arrest 3. Respiratory arrest, requiring oral intubation. 4. Status post self-extubation. 5. Acute toxic encephalopathy secondary to drug overdose, resolved. 6. Renal failure, likely due to dehydration, resolved. 7. Dehydration, resolved. 8. Possible aspiration pneumonia versus pneumonitis, improved. 9. Leukocytosis, resolved. 10. History of intravenous drug abuse (heroin). 11. Opioid dependency. 12. Nicotine dependency with withdrawal. 13. Evidence of segmental wall motion abnormalities, resolved. 14. Orthostatic tachycardia. Discharge Medications: See medication reconciliation list. Prescription provided for antibiotic. Discharge Instructions: The patient was discharged to facility where he is undergoing outpatient drug rehabilitation. The patient was counseled on abstinence from illicit drugs as well as smoking cessation. The patient was encouraged to complete antibiotic regimen. The patient was stable for discharge. Colette Howard M.D. Chanelle GonzalezBrunswick Hospital CenterPhylicia Gallardo DR: ISABEL JOB#: [id number] CC: DENISE
== END 2017-08-11 12:19 | disposition home or self-care (01) | DRG 917 ==
LOC: EDBD 17:44 → EMR 17:58 → ICU 19:40 → EDBEDREQ 19:43 → 4W 08-09 13:59 → 4E 08-09 19:14 → 2W 08-09 21:11
PROC: 0BH17EZ Insertion of Endotracheal Airway into Trachea, Via Natural or Artificial Opening (ICD-10-PCS; principal; 2017-08-07)
PROC: 5A1935Z Respiratory Ventilation, Less than 24 Consecutive Hours (ICD-10-PCS; principal; 2017-08-07)
DX: T40.601A Poisoning by unspecified narcotics, accidental (unintentional), initial encounter (principal); J69.0 Pneumonitis due to inhalation of food and vomit; J96.02 Acute respiratory failure with hypercapnia; J96.01 Acute respiratory failure with hypoxia; G92 Toxic encephalopathy; F11.20 Opioid dependence, uncomplicated; F17.203 Nicotine dependence unspecified, with withdrawal; F19.20 Other psychoactive substance dependence, uncomplicated; N19 Unspecified kidney failure; E86.0 Dehydration; R00.0 Tachycardia, unspecified; T22.031A Burn of unspecified degree of right upper arm, initial encounter; X08.8XXA Exposure to other specified smoke, fire and flames, initial encounter; T24.001A Burn of unspecified degree of unspecified site of right lower limb, except ankle and foot, initial encounter
CPT/HCPCS: 31500; 36415; 36600; 71010; 80048; 80053; 80061; 80076; 80300; 81001; 82550; 82553; 82803; 83036; 83615; 83735; 83880; 84100; 84443; 84478; 84484; 84550; 85007; 85025; 85610; 85730; 86140; 87040; 87070; 87081; 87086; 87205; 92950; 93005; 93306; 94002; 94003; 94640; 94664; 94760; J2250; J2310; J2405; J7620